=== PATIENT | male | born 1940 | race Caucasian/White ===

== ENCOUNTER → 2016-04-20 | Outpatient (CLI) | payer MEDICARE ==
--- NOTE | 2016-04-20 16:25 | XR ---
EXAMINATION TYPE: XR chest 2V DATE OF EXAM: 04/20/2016 4:21 PM COMPARISON: Chest x-ray September 22, 2010. HISTORY: Cough for one year TECHNIQUE: Frontal and lateral views of the chest are obtained. FINDINGS: Underlying emphysematous change is present. There is no focal air space opacity, pleural ef fusion, or pneumothorax seen. The cardiac silhouette size is within normal limits with slightly ecta tic and atherosclerotic thoracic aorta noted. The osseous structures are demineralized. Metallic an chors from rotator cuff surgery bilateral humeral head is now present. IMPRESSION: Chronic emphysematous change without acute pulmonary process currently.
== END ==
LOC: RADXRMAIN 15:56
PROVIDERS: ATTEND Otolaryngology
DX: J43.9 Emphysema, unspecified (principal)
CPT/HCPCS: 71020

== ENCOUNTER → 2016-06-23 | Outpatient (CLI) | payer MEDICARE ==
--- NOTE | 2016-06-29 23:36 | MR ---
EXAMINATION TYPE: MR pelvis wo/w con DATE OF EXAM: 06/23/2016 12:41 PM COMPARISON: CT abdomen and pelvis July 27, 2013. HISTORY: Newly diagnosed prostate cancer for treatment planning per order. Location and Loiza score not provided. CONTRAST: Standard multiplanar, multisequence MRI departmental protocol utilizing 15 mL intravenous MultiHance gadolinium contrast. Exam is performed of the pelvis under normal pelvis protocol. FINDINGS: Exam is suboptimal as is not performed under a dedicated prostate protocol. Dynamic postcon trast imaging is not performed, in addition best multi phase subtraction imaging could not be perfor med. Also intramuscular glucagon is not given to diminished bowel motion and finally Field of view is much larger than typical for dedicated prostate study. Right-sided seminal vesicle is slightly more prominent lobulated, smaller hypoplastic left seminal ve sicle is noted. Prostate gland measures 5.0 cm transversely by 3.1 cm in AP diameter on axial image 99 series 1201. C raniocaudal length is roughly 3.4 cm on sagittal image 43 series 1601. Prostate gland is thus upper l imits of normal in size. Scattered areas of T1 hyperintensity are likely reflecting methemoglobin or blood product from recent biopsy. There is more prominent heterogeneity of the central zone. Seen bet ter on prior CT 2013 there is suggestion of a subcentimeter peripheral zone nodule left mid lobe ante riorly on axial image 84, this is felt to correspond to correspond to minimally enhancing slightly T2 hyperintense nodule measuring 4 x 5 mm on axial image 98 series 1201. No extracapsular extension is identified. No neurovascular bundle invasion is seen. No suspicious adjacent pelvic adenopathy is see n. Some diverticula are seen in the visualized sigmoid colon. There is no concerning pelvic fluid collec tion. There is partial visualization of small bilateral scrotal fluid collection or hydroceles. There is disc space narrowing at lumbosacral junction. Osseous lesions are identified. Fairly moderate hip joint effusions are seen bilaterally, right greater than left. Enhancement at level of right greater trochanter raises concern for trochanteric bursitis seen best coronal image 67 series 1301. IMPRESSION: Suboptimal study with poor visualization of biopsy-proven malignancy as detailed above. N o suspicious extracapsular extension or concerning pelvic adenopathy clearly identified on this study .
== END | disposition home or self-care (01) ==
LOC: RADMRIMAIN 11:15
PROVIDERS: ATTEND Radiology Radiation Oncology
DX: C61 Malignant neoplasm of prostate (principal)
CPT/HCPCS: 72197; A9577

== ENCOUNTER 2016-08-23 20:25 | Emergency (ER) | payer MEDICARE ==
[2016-08-23 20:31] VITALS: TEMP 98.1
--- NOTE | 2016-08-23 20:51 | ED ---
Male Urogenital HPI - General Chief complaint: Urogenital Stated complaint: Catheter leaking Time Seen by Provider: 08/23/16 20:33 Source: patient, RN notes reviewed Mode of arrival: ambulatory Limitations: no limitations - History of Present Illness Initial comments: this is a 76-year-old male presents emergency Department with chief complaint of Ayala catheter leaking. Patient states he had this placed by his urologist 2 days ago. Patient states he is having difficulty urinating that time secondary to prostate radiation treatment. Patient states that he was doing well until today states that his been leaking around the catheter. He does have the urge to go to the bathroom. Patient denies any fever, chills, diarrhea constipation. He does feel at that he has some distention of his lower abdomen.patient states she's in recent urinary tract infections. Patient states his urine is slightly cloudy though. - Related Data Home Medications Medication Instructions Recorded Confirmed Lisinopril [Zestril] 20 mg PO QAM 07/27/13 08/23/16 Simvastatin [Zocor] 20 mg PO DAILY 07/27/13 08/23/16 Tamsulosin HCl [Flomax] 0.4 mg PO DAILY 07/27/13 08/23/16 Citalopram Hydrobromide [CeleXA] 40 mg PO DAILY 08/23/16 08/23/16 Docusate [Colace] 100 mg PO DAILY 08/23/16 08/23/16 Ibuprofen [Motrin] 600 mg PO TID PRN 08/23/16 08/23/16 Montelukast [Singulair] 10 mg PO DAILY 08/23/16 08/23/16 Omeprazole 40 mg PO DAILY 08/23/16 08/23/16 Unknown Antibiotic 1 tab PO BID 08/23/16 08/23/16 Allergies Allergy/AdvReac Type Severity Reaction Status Date / Time No Known Allergies Allergy Verified 08/23/16 20:43 Review of Systems ROS Statement: Those systems with pertinent positive or pertinent negative responses have been documented in the HPI. ROS Other: All systems not noted in ROS Statement are negative. Past Medical History Past Medical History: Hyperlipidemia, Hypertension, Osteoarthritis (OA), Skin Disorder Additional Past Medical History / Comment(s): prostate, psoriasis History of Any Multi-Drug Resistant Organisms: None Reported Past Surgical History: Orthopedic Surgery, Tonsillectomy Additional Past Surgical History / Comment(s): BILATERAL shoulders. URETHRA REPAIR. Past Anesthesia/Blood Transfusion Reactions: No Reported Reaction Past Psychological History: Anxiety, Depression Smoking Status: Former smoker - Past Family History Mother Family Medical History: No Reported History General Exam Limitations: no limitations General appearance: alert, in no apparent distress Respiratory exam: Present: normal lung sounds bilaterally. Absent: respiratory distress, wheezes, rales, rhonchi, stridor Cardiovascular Exam: Present: regular rate, normal rhythm, normal heart sounds. Absent: systolic murmur, diastolic murmur, rubs, gallop, clicks GI/Abdominal exam: Present: soft, tenderness (mild suprapubic), normal bowel sounds. Absent: distended, guarding, rebound, rigid exam: Present: other (fully catheter in place there is no obviously This time ). Absent: testicular tenderness, urethral discharge Back exam: Absent: CVA tenderness (R), CVA tenderness (L) Neurological exam: Present: alert, oriented X3, CN II-XII intact Course Vital Signs 08/23/16 20:29 Temperature 98.1 F Pulse Rate 71 Respiratory 18 Rate Blood Pressure 219/85 O2 Sat by Pulse 97 Oximetry Medical Decision Making - Medical Decision Making 76-year-old male presented for leaking Ayala catheter. Patient's Ayala catheter was irrigated and one large blood clot was irrigated. Patient's catheter is flowing freely. Patient does feel much improved. Patient's urinalysis does show moderate amount of blood but no evidence of UTI. His urine is cultured. - Lab Data Lab Results 08/23/16 Range/Units 20:44 Urine Color Yellow Urine Appearance Clear (Clear) Urine pH 5.5 (5.0-8.0) Ur Specific [place] 1.016 (1.001-1.035) Urine Protein 1+ H (Negative) Urine Glucose (UA) Negative (Negative) Urine Ketones Negative (Negative) Urine Blood Large H (Negative) Urine Nitrite Negative (Negative) Urine Bilirubin Negative (Negative) Urine Urobilinogen <2.0 (<2.0) mg/dL Ur Leukocyte Esterase Moderate H (Negative) Urine RBC >182 H (0-5) /hpf Urine WBC 7 H (0-5) /hpf Urine Bacteria Occasional H (None) /hpf Urine Mucus Rare H (None) /hpf Disposition Clinical Impression: Complication, blocked Ayala catheter Disposition: HOME SELF-CARE Condition: Stable Instructions: Ayala Catheter Placement and Care (ED) Additional Instructions: Please return to the Emergency Department if symptoms worsen or any other concerns. Referrals: Daquan Collier DO [Primary Care Provider] - 1-2 days Time of Disposition: 21:05
[2016-08-23 20:55] LABS: Appearance,Urine Clear (Clear); Bacteria,Urine Occasional /hpf; Bilirubin,Urine Negative (Negative); Glucose,Urine (UA) Negative (Negative); Ketones,Urine Negative (Negative); Leukocyte Esterase,Urine Moderate (Negative); Mucus,Urine Rare /hpf; Nitrite,Urine Negative (Negative); PH, Urine 5.5 (5.0-8.0); Particle Count 3386; Protein,Urine 1+ (Negative); RBC,Urine >182 /hpf (0-5); Specific Gravity,Urine 1.016 (1.001-1.035); UA Billing (MACRO vs. MICRO) MICRO; Urobilinogen,Urine <2.0 mg/dL (<2.0); WBC,Urine 7 /hpf (0-5)
[2016-08-23 21:15] VITALS: BP 169/77; PULSE 75; RESP 16
== END 2016-08-23 21:13 | disposition home or self-care (01) ==
LOC: EC 20:25
DX: T83.031A Leakage of indwelling urethral catheter, initial encounter (principal); E78.5 Hyperlipidemia, unspecified; I10 Essential (primary) hypertension; F32.9 Major depressive disorder, single episode, unspecified; Z79.899 Other long term (current) drug therapy; Z87.891 Personal history of nicotine dependence
CPT/HCPCS: 81001; 87086; 99283

== ENCOUNTER 2016-11-11 06:22 | Day surgery (SDC) | payer MEDICARE ==
[2016-11-09 09:42] VITALS: BMI 22.0
[~2016-11-11 06:22] MED LIST: ALPRAZolam 0.25 MG TAB PO PRN; ALPRAZolam 0.5 MG TAB PO PRN; ASPIRIN 325 MG TAB PO STA; ATORVASTATIN 80 MG TAB PO STA; NITROGLYCERIN SL TABS 0.4 MG TAB SUBLINGUAL PRN; SODIUM CHLORIDE 0.9% 1,000 ML in EMPTY BAG 1 BAG IV ONE
[2016-11-11] MEDS ORDERED: fentaNYL (PF) 50 MCG/ML 2 ML AMP ONE (07:33)
[2016-11-11] MEDS ORDERED: MIDAZOLAM 2 MG/2 ML VIAL ONE ×2 (07:33→07:34)
[2016-11-11] MEDS ORDERED: BENZOCAINE SPRAY 1 SPRAY CAN MUCOUS MEM ONE (07:38)
[2016-11-11] MEDS ORDERED: MIDAZOLAM 2 MG/2 ML VIAL IV ONE (07:42)
[2016-11-11] MEDS ORDERED: fentaNYL (PF) 50 MCG/ML 2 ML AMP IV ONE (07:42)
--- NOTE | 2016-11-11 08:00 | P.TEE ---
Indications for Procedure(s): Assessment of aortic stenosis Date of Procedure: 11/11/16 Preoperative Diagnosis: Aortic stenosis Postoperative Diagnosis: Severe aortic stenosis by Doppler criteria Description of Procedure(s): INDICATION: This 76-year-old gentleman with known aortic stenosis was found to have increasing gradient across the aortic valve with a peak of 80 and mean of about 40. Patient is advised to have a JEZ to further assess her aortic stenosis. CONSENT: Informed consent was obtained from patient and PROCEDURE: . Patient was brought to the lab in a fasting state. He was given conscious sedation with 2 mg of Versed and 25 g of fentanyl. A lubricated Omni probe was introduced into the oropharynx and was advanced into the esophagus. Multiple views were obtained both from stomach and esophagus. Patient tolerated the procedure well. Color and pulse wave Doppler was performed along with saline contrast bubble injection. FINDINGS: The aortic valve is heavily calcified. It appears to be trileaflet. By planimetry valve area of 1.3 cm was obtained. However, a peak gradient of about 75 with mean of 39 was obtained consistent with severe aortic stenosis. No aortic regurgitation noted. Aortic root diameter is measures 2.7. The mitral valve did not reveal any significant regurgitation. Status post mitral regurgitation. The left atrial appendage is free of any clot. Interatrial septum appeared to be intact without any shunt. Saline contrast bubble injection did not reveal any crossing of the bubbles across the interatrial septum. Left ventricular function appeared to be normal. Aorta showed minimal plaque IMPRESSION: #1. Severe aortic stenosis by Doppler criteria. By planimetry valve area is 1.3 sized to moderate aortic stenosis. #2. No PFO #3. No clot in the left atrial appendage. #4. Left ventricular function is preserved. PLAN: Proceed with cardiac catheterization. Possible referral for aortic valve replacement.
[2016-11-11] MEDS ORDERED: LIDOCAINE 2% INJ 20 MG/ML SQ ONE (08:28)
[2016-11-11 08:56] LABS: Site PA
[2016-11-11 08:59] LABS: Site RA
[2016-11-11 09:02] LABS: Site FA
[2016-11-11] MEDS ORDERED: IOHEXOL 350 MG/ML 125ML BOTTLE INJ ONE (09:20)
[2016-11-11] MEDS ORDERED: RX INFO: IV CONTRAST WAS GIVEN 1 EACH MISC MISCELLANE PRN (09:25)
[2016-11-11] MEDS ORDERED: SODIUM CHLORIDE 0.9% 1,000 ML IV SCH (09:30)
--- NOTE | 2016-11-11 09:53 | P.PCN ---
Date of Procedure: 11/11/16 Preoperative Diagnosis: Critical aortic stenosis Postoperative Diagnosis: Moderate to severe aortic stenosis with a valve area of about 1.1-1.2 Procedure(s) Performed: Right and left heart catheterization Description of Procedure: HISTORY: This is a 76-year-old gentleman with history of mild aortic stenosis, hypertension, hypercholesterolemia who had echocardiogram recently and was found a peak gradient of 80 with a mean of 60 consistent with severe aortic stenosis. Patient is advised to have a right and left heart catheterization for further assessment. Patient and family were explained the risks and benefits of the procedure. CONSENT:I have discussed the risks, benefits and alternative therapies for the above-mentioned procedure and for both sedation/analgesia as well as necessary blood product administration, if indicated, as they pertain to this patient. The patient has indicated understanding and acceptance of the risks and procedures discussed. PROCEDURE: Patient was brought to the lab in a fasting state. Patient was given conscious IV sedation for JEZ examination. No additional sedation was given during the procedure. RIGHT HEART CATHETERIZATION: The right groin is infiltrated with lidocaine and right femoral vein was entered using Seldinger technique. A 7-Tunisian sheath was left in place. Right heart catheterization was performed using 6-Tunisian [place]-Shannan catheter. Patient tolerated the procedure well. LEFT HEART CATHETERIZATION:Right femoral artery was entered using Seldinger technique. A 6-Tunisian catheter was left in place and selective coronary arteriography was performed. Patient tolerated the procedure well. . No immediate complications were noted and patient was transferred to [facility] in a stable condition. Manual compression was applied for hemostasis. Femoral angiogram was performed and entry site was not felt to be ideal for Angio-Seal. Conscious Sedation: Versed : 2 mg Fentanyl 25 g Duration 55 minutes HEMODYNAMICS: . RIGHT HEART CATHETERIZATION: Right Atrium: 7/5/4 . Right ventricle: 25/3/4 , pulmonary artery pressure: 22/10/14 . Pulmonary wedge pressure: 14/16/ 10 Cardiac output: Thermodilution method is 5.3, Alex method is 4.73. Oxygen saturations: Right atrium is 6-8.8. Pulmonary artery 67.2. Femoral arteries 97.7 LEFT HEART CATHETERIZATION Left ventricle pressure is 175/6/19. He did aortic pressure: 149/57/93. The gradient across the aortic valve peak gradient is 26- 30. The mean gradient is 24. The valve area is 1.1-1.2. SELECTIVE CORONARY ARTERIOGRAPHY: LEFT MAIN: The left main is a relatively short and free of any significant occlusive disease. THE LEFT ANTERIOR DESCENDING CORONARY ARTERY: This is a moderate caliber vessel giving rise to good-sized diagonal branch. The diagonal branches. The ostial lesion of about 50-60%. The mid LAD has an area. 60-70% stenosis. The vessel becomes small of to the mid lesion THE LEFT CIRCUMFLEX AND IS CORONARY ARTERY: . This is a good caliber vessel, including giving rise good-sized OM branch and the circumflex and is coronary artery and branches are free of occlusive disease THE RIGHT CORONARY ARTERY: . This is a fair caliber vessel giving rise good-sized PDA and small PLV. The right coronary artery and branches are free of occlusive disease LEFT VENTRICULOGRAPHY: . Not performed FINAL IMPRESSION: #1 moderate to severe aortic stenosis. #2. Moderate stenosis involving the mid LAD and also ostium of the first diagonal. #3. Normal pulmonary hemodynamics PLAN: . Continuation of medical therapy with risk factor modification. Close follow-up of wide stenosis PROGNOSIS: Fair
[2016-11-11 10:29] VITALS: TEMP 98.2
[2016-11-11 16:00] VITALS: RESP 18
[2016-11-11 16:01] VITALS: BP 166/73; PULSE 52
== END 2016-11-11 17:30 | disposition home or self-care (01) ==
LOC: CATHCVL 06:22
PROVIDERS: ATTEND Internal Medicine Cardiovascular Disease
DX: I35.0 Nonrheumatic aortic (valve) stenosis (principal); I10 Essential (primary) hypertension; E78.00 Pure hypercholesterolemia, unspecified; Z79.82 Long term (current) use of aspirin; Z79.899 Other long term (current) drug therapy; Z85.46 Personal history of malignant neoplasm of prostate; Z87.891 Personal history of nicotine dependence; N40.1 Benign prostatic hyperplasia with lower urinary tract symptoms; N13.8 Other obstructive and reflux uropathy
CPT/HCPCS: 93312; 93320; 93325; 93460; 85018; 82810; 99152; 99153 ×2; C1769 ×2; C1894 ×2; J2001; J2250; J3010; Q9967

== ENCOUNTER → 2017-11-15 | Outpatient (CLI) | payer MEDICARE ==
--- NOTE | 2017-11-16 07:58 | US ---
EXAMINATION TYPE: US thyroid st tissue head/neck DATE OF EXAM: 11/15/2017 COMPARISON: 10/30/2015 CLINICAL HISTORY: E04.2 MULITNODULAR GOITER. Goiter, pt has no complaints at this time GLAND SIZE: Right Lobe: 4.9 x 1.7 x 2.0 cm Overall Parenchyma: homogenous Left Lobe: 4.9 x 1.9 x 1.3 cm Overall Parenchyma: homogeneous Isthmus Thickness: 0.4 cm NODULES RIGHT: # of nodules measured on right: 1 1. 0.6 X 0.5 x 0.7 cm hypoechoic solid nodule at the mid pole with well-defined margins;This nodule is wider than tall and shows intranodular vascularity. Prior size: 0.7 cm LEFT: # of nodules measured on left: 1 1. 0.6 X 0.5 x 0.4 cm isoechoic solid nodule at the mid pole with well-defined margins; This nodule is wider than tall and shows intranodular vascularity. Prior size: 0.6 cm Bilateral neck scanned, no evidence of lymphadenopathy. Stable sub-centimeter nodules bilaterally. IMPRESSION: Bilateral subcentimeter thyroid nodules appear stable. Thyroid gland is slightly enlarged. Correlate clinically.
== END ==
LOC: RADUSWWP 15:54
PROVIDERS: ATTEND Family Medicine
DX: E04.2 Nontoxic multinodular goiter (principal)
CPT/HCPCS: 76536

== ENCOUNTER → 2018-03-02 | Day surgery (SDC) | payer MEDICARE ==
[~2018-03-02] MED LIST changes: +IOPAMIDOL-370 125ML BTL INJ ONE; +LIDOCAINE 1% INJ 10MG/ML (20 ML MDV) ONE; +LIDOCAINE 1% INJ 10MG/ML (20 ML MDV) SQ ONE; +MIDAZOLAM 2 MG/2 ML VIAL IVP ONE; +SODIUM CHLORIDE 0.9% 1,000 ML IV SCH; +fentaNYL (PF) 50 MCG/ML 2 ML AMP IVP ONE; +fentaNYL (PF) 50 MCG/ML 2 ML AMP ONE
[2018-03-02 08:20] VITALS: TEMP 97.9
[2018-03-02 08:32] LABS: Basophils % (A) 1 %; Eosinophils # (A) 0.2 k/uL (0-0.7); Eosinophils % (A) 4 %; HCT 42.1 % (39.0-53.0); HGB 14.1 gm/dL (13.0-17.5); Lymphocytes % (A) 17 %; MCH 29.4 pg (25.0-35.0); MCHC 33.5 g/dL (31.0-37.0); MCV 87.7 fL (80.0-100.0); Mean Platelet Volume 6.8; Monocytes # (A) 0.6 k/uL (0-1.0); Monocytes % (A) 10 %; Neutrophils # (A) 3.9 k/uL (1.3-7.7); Neutrophils % (A) 67 %; Platelet Count 179 k/uL (150-450); RDW 13.9 % (11.5-15.5); WBC 5.9 k/uL (3.8-10.6)
[2018-03-02 08:40] LABS: Calcium 9.5 mg/dL (8.4-10.2); Potassium 4.3 mmol/L (3.5-5.1)
[2018-03-02 09:17] LABS: O2 Sat Blood Gas 68.6 %
[2018-03-02 09:19] LABS: O2 Sat Blood Gas 59.2 %
[2018-03-02 09:23] LABS: O2 Sat Blood Gas 93.7 %
--- NOTE | 2018-03-02 09:57 | P.CARDCATH ---
Date of Procedure: 03/02/18 Preoperative Diagnosis: Aortic stenosis, severe and symptoms of dizziness Description of Procedure: HISTORY: This is a 77-year-old gentleman with history of coronary artery disease and also aortic stenosis. Recently patient had a JEZ examination which showed some progression of aortic stenosis with a peak gradient of about 50-60. However by planimetry Valve area of 1.1. This was done last year. Patient came this time to the office with complaints of episodes of dizziness. Because of his symptoms and known moderate to severe aortic stenosis. Patient is advised to have cardiac catheterization. Patient also had a coronary artery disease with lesions the diagonal branch and the LAD and the previous cardiac catheterization. CONSENT:I have discussed the risks, benefits and alternative therapies for the above-mentioned procedure and for both sedation/analgesia as well as necessary blood product administration, if indicated, as they pertain to this patient. The patient has indicated understanding and acceptance of the risks and procedures discussed. PROCEDURE: Patient was brought to the lab in a fasting state. Patient was given some IV sedation. The right groin is infiltrated with lidocaine and right femoral artery was entered using Seldinger technique. A 6-Malay catheter was left in place and selective coronary arteriography was performed. Patient tolerated the procedure well. Femoral angiogram was performed and Angio -Seal was applied for hemostasis. No immediate complications were noted and patient was transferred to [facility] in a stable condition : Right heart catheterization: This is performed from the right groin. Right femoral vein was entered using Seldinger technique and a 7-Malay sheath was left in place. Right heart catheterization was performed using a [place]-Shannan catheter. Patient tolerated the procedure well Conscious Sedation: Versed 0.5 mg Fentanyl 25 g Duration 32 minutes HEMODYNAMICS:. Right heart catheterization showed a right atrial pressure of about 3-4, right ventricle pressure of about 26/4, pulmonary artery pressure of about 25/11 and read presented to 9 to 11. The cardiac output by thermodilution method was about 4.6 L and by Alex method 5.1. The peak gradient across the aortic valve was 46 with a mean of 34. The calculated valve area is 0.8 2.89. The aortic pressure is about 140/70. Left ankle end- diastolic pressure is about 5-6. SELECTIVE CORONARY ARTERIOGRAPHY: LEFT MAIN: This is a normal length and free of occlusive disease THE LEFT ANTERIOR DESCENDING CORONARY ARTERY:. This is a fair caliber vessel giving rise to good-sized diagonal branch. The diagonal branch has about 70-80% ostial lesion. There is also about 60-70% lesion involving the mid LAD. Beyond that lesion the vessel appears to be small in caliber. THE LEFT CIRCUMFLEX AND IS CORONARY ARTERY: Fair caliber vessel giving rise to good-sized OM branch. The circumflex has mild intimal disease without any Sigmund focal lesion THE RIGHT CORONARY ARTERY:. This is a good caliber vessel giving rise to PDA and small PLV. The right coronary artery is mild intimal disease without any significant focal lesions LEFT VENTRICULOGRAPHY: Not performed FINAL IMPRESSION:. #1. Critical aortic stenosis. #2. Coronary artery disease with critical lesion in the diagonal and intermediate disease in the mid LAD. #3. Normal pulmonary hemodynamics. #4. Preserved LV function by echo PLAN:. Patient is advised to have a aortic wall replacement with bypass graft to the diagonal and also possibly to the distal LAD PROGNOSIS: Fair
[2018-03-02 11:02] VITALS: RESP 18
[2018-03-02 11:46] LABS: INR 0.9 (<1.2); Partial Thromboplastin Time 24.4 sec (22.0-30.0); Prothrombin Time 10.2 sec (9.0-12.0)
[2018-03-02 11:48] LABS: ALT 28 U/L (21-72); AST 23 U/L (17-59); Alkaline Phosphatase 70 U/L (38-126); Anion Gap 4 mmol/L; Blood Urea Nitrogen 20 mg/dL (9-20); Calcium 9.2 mg/dL (8.4-10.2); Carbon Dioxide 28 mmol/L (22-30); Chloride 110 mmol/L (98-107); Cholesterol 156 mg/dL (<200); Glucose 101 mg/dL (74-99); HDL Cholesterol 47 mg/dL (40-60); LDL Cholesterol,Calculated 84 mg/dL (0-99); Potassium 4.8 mmol/L (3.5-5.1); Sodium 142 mmol/L (137-145); Total Bilirubin 0.8 mg/dL (0.2-1.3); Total Protein 6.4 g/dL (6.3-8.2); Triglycerides 125 mg/dL (<150)
--- NOTE | 2018-03-02 12:11 | P.GSCN ---
History of Present Illness Consult date: 03/02/18 Reason for Consult: Critical aortic stenosis, coronary artery disease with critical lesion in the diagonal and intermediate disease in the mid left anterior descending coronary artery. Requesting physician: Paula Jara History of present illness: This is a 77-year-old gentleman who is followed by Dr. Daquan Collier of [facility] on an outpatient basis. The patient has a past medical history significant for aortic stenosis, hypertension, hyperlipidemia, gastroesophageal reflux disease, psoriasis, osteoarthritis, depression, benign prostatic hypertrophy and history of prostate cancer with one treatment of radiation. In the past 6 months the patient reports that he has been having episodes of weakness associated with lightheadedness which is been progressively getting more frequent. He reports that he feels like he is going to pass out at least once a week and that the episodes only come on during activity. He denies any complaints of shortness of breath, chest pain or pressure, nausea, vomiting, diaphoresis or syncopal events. Dr. Jara from [facility] has been following the patient on an outpatient basis for his episodes of lightheadedness. On 2017 the patient underwent a transesophageal echocardiogram which showed moderate to severe aortic valve stenosis with a mean gradient across the aortic valve 25-30 mmHg and a peak gradient of 50-60 mmHg, and a aortic valve area calculated to be 1.2 cm, moderate mitral valve regurgitation and a left ventricular function to be preserved. Subsequently due to the patient's symptoms and no one moderate to severe aortic valve stenosis he was advised to undergo a cardiac catheterization. Today after obtaining consent hev was taken to the cardiac catheterization lab where Dr. Jara performed a selective right and left coronary arteriography which demonstrated a 70-80% stenosis to his diagonal coronary artery and a 60-70% stenosis involving his mid left anterior descending coronary artery, it also demonstrated critical aortic stenosis with a peak gradient across the aortic valve of 46 mmHg and a mean gradient of 34 mmHg with an aortic valve area Related to be 0.8 cm. Due to the patient's symptoms, transesophageal echocardiogram and a cardiac catheterization results a consult was placed to Dr. Ananda Estrada for recommendations on aortic valve replacement and myocardial revascularization surgery. Review of Systems A 14 point review of systems was completed and was negative except as mentioned in the HPI. Past Medical History Past Medical History: GERD/Reflux, Hyperlipidemia, Hypertension, Osteoarthritis (OA), Prostate Disorder, Skin Disorder Additional Past Medical History / Comment(s): Episodes of dizziness and presyncope. Prostate CA dx 2014 approx-received high definition radiation 1 treatment. Psoriasis History of Any Multi-Drug Resistant Organisms: None Reported Past Surgical History: Orthopedic Surgery, Tonsillectomy Additional Past Surgical History / Comment(s): 12/27/17 JEZ. BILATERAL shoulders. URETHRA REPAIR. Past Anesthesia/Blood Transfusion Reactions: No Reported Reaction Past Psychological History: Anxiety, Depression Smoking Status: Former smoker (Quit over 35 years ago.) Past Alcohol Use History: Occasional Additional Past Alcohol Use History / Comment(s): quit smoking , smoked socially <1 pp week,started smoking at age 16 Past Drug Use History: None Reported - Past Family History Mother Family Medical History: No Reported History Medications and Allergies Home Medications Medication Instructions Recorded Confirmed Type Lisinopril [Zestril] 20 mg PO QA 07/27/13 03/02/18 History Simvastatin [Zocor] 20 mg PO DAILY 07/27/13 03/02/18 History Tamsulosin HCl [Flomax] 0.4 mg PO 07/27/13 03/02/18 History Citalopram Hydrobromide [CeleXA] 40 mg PO DAILY 08/23/16 03/02/18 History Docusate [Colace] 100 mg PO HS 08/23/16 03/02/18 History Omeprazole 40 mg PO HS 08/23/16 03/02/18 History Aspirin [Adult Low Dose Aspirin EC] 162 mg PO HS 11/09/16 03/02/18 History Metoprolol Tartrate 25 mg PO DAILY #30 tab 11/11/16 03/02/18 Rx Allergies Allergy/AdvReac Type Severity Reaction Status Date / Time No Known Allergies Allergy Verified 03/01/18 09:49 Surgical - Exam Vital Signs Temp Pulse Resp BP Pulse Ox 97.9 F 64 18 194/81 99 03/02/18 08:05 03/02/18 08:05 03/02/18 08:05 03/02/18 08:05 03/02/18 08:05 - General well developed, well nourished, no distress, no pain - Eyes PERRL, normal ocular movement - ENT normal pinna, normal nares, normal mucosa, no hearing loss, no congestion - Neck No lymphadenopathy, neck is supple. no masses, no bruits, trachea midline, no venous distension - Respiratory Lung sounds are essentially clear throughout. Respirations are symmetrical and nonlabored. No wheezing or crackles present. - Cardiovascular Regular rhythm and rate. S1 and S2 present, positive systolic murmur 3/6. No edema present. Bedside telemetry showing normal sinus rhythm heart rate 61. - Abdomen Abdomen is soft, nontender and nondistended. Active bowel sounds all 4 abdominal quadrants. No organomegaly. No guarding or rigidity. - Genitourinary Deferred - Rectum Deferred - Integumentary no rash, no growths, no abnormal pigmentation - Neurologic normal coordination, normal sensation - Musculoskeletal normal gait, normal posture - Psychiatric oriented to time, oriented to person, oriented to place, speech is normal, memory intact Results - Labs 03/02/18 08:07 03/02/18 11:16 Abnormal Lab Results - Last 24 Hours (Table) 03/02/18 Range/Units 08:07 Chloride 109 H (98-107) mmol/L BUN 22 H (9-20) mg/dL Glucose 102 H (74-99) mg/dL Diabetes panel 03/02/18 Range/Units 08:07 Sodium 144 (137-145) mmol/L Potassium 4.3 (3.5-5.1) mmol/L Chloride 109 H (98-107) mmol/L Carbon Dioxide 27 (22-30) mmol/L BUN 22 H (9-20) mg/dL Creatinine 0.94 (0.66-1.25) mg/dL Glucose 102 H (74-99) mg/dL Calcium 9.5 (8.4-10.2) mg/dL Calcium panel 03/02/18 Range/Units 08:07 Calcium 9.5 (8.4-10.2) mg/dL Pituitary panel 03/02/18 Range/Units 08:07 Sodium 144 (137-145) mmol/L Potassium 4.3 (3.5-5.1) mmol/L Chloride 109 H (98-107) mmol/L Carbon Dioxide 27 (22-30) mmol/L BUN 22 H (9-20) mg/dL Creatinine 0.94 (0.66-1.25) mg/dL Glucose 102 H (74-99) mg/dL Calcium 9.5 (8.4-10.2) mg/dL Adrenal panel 03/02/18 Range/Units 08:07 Sodium 144 (137-145) mmol/L Potassium 4.3 (3.5-5.1) mmol/L Chloride 109 H (98-107) mmol/L Carbon Dioxide 27 (22-30) mmol/L BUN 22 H (9-20) mg/dL Creatinine 0.94 (0.66-1.25) mg/dL Glucose 102 H (74-99) mg/dL Calcium 9.5 (8.4-10.2) mg/dL - Imaging Comments: Cardiac catheterization and transesophageal echocardiogram results reviewed by Dr. Ananda Estrada. Assessment and Plan (1) Coronary artery disease Current Visit: Yes Status: Acute Code(s): I25.10 - ATHSCL HEART DISEASE OF [place] CORONARY ARTERY W/O ANG PCTRS SNOMED Code(s): 30217086 (2) Aortic valve stenosis Current Visit: Yes Status: Acute Code(s): I35.0 - NONRHEUMATIC AORTIC (VALVE ) STENOSIS SNOMED Code(s): 46690267 (3) Hypertension Current Visit: Yes Status: Acute Code(s): I10 - ESSENTIAL (PRIMARY) HYPERTENSION SNOMED Code(s): 57865304 (4) Hyperlipidemia Current Visit: Yes Status: Acute Code(s): E78.5 - HYPERLIPIDEMIA, UNSPECIFIED SNOMED Code(s): 00490965 (5) Psoriasis Current Visit: Yes Status: Acute Code(s): L40.9 - PSORIASIS, UNSPECIFIED SNOMED Code(s): 6074406 (6) Osteoarthritis Current Visit: Yes Status: Acute Code(s): M19.90 - UNSPECIFIED OSTEOARTHRITIS, UNSPECIFIED SITE SNOMED Code(s): 962575017 (7) BPH (benign prostatic hyperplasia) Current Visit: Yes Status: Acute Code(s): N40.0 - BENIGN PROSTATIC HYPERPLASIA WITHOUT LOWER URINRY TRACT SYMP SNOMED Code(s): 813500429 (8) History of prostate cancer Current Visit: Yes Status: Acute Code(s): Z85.46 - PERSONAL HISTORY OF MALIGNANT NEOPLASM OF PROSTATE SNOMED Code(s): 236037008 (9) GERD (gastroesophageal reflux disease) Current Visit: Yes Status: Acute Code(s): K21.9 - GASTRO-ESOPHAGEAL REFLUX DISEASE WITHOUT ESOPHAGITIS SNOMED Code(s): 167724508 (10) Depression Current Visit: Yes Status: Acute Code(s): F32.9 - MAJOR DEPRESSIVE DISORDER , SINGLE EPISODE, UNSPECIFIED SNOMED Code(s): 18761849 Plan: The patient was seen and examined. His chart and diagnostics were reviewed. The patient was seen and examined by Dr. Ananda Estrada from cardiothoracic surgery. Dr. Estrada discussed the transesophageal echocardiogram and cardiac catheterization results with the patient and his daughter. Preoperative teaching has been initiated and preoperative workup has been initiated. The patient will be scheduled on 03/10/2017 to follow-up with Dr. Estrada in the office to to discuss aortic valve replacement and myocardial revascularization surgery. Continue to optimize medical management, continue aspirin, statin and beta yaneth. Thank you Dr. Jara for this consult and we will look fourth working with you in the care of your patient. Time with Patient: Greater than 30
--- NOTE | 2018-03-02 13:17 | XR ---
EXAMINATION TYPE: XR chest 2V DATE OF EXAM: 03/02/2018 COMPARISON: Chest x-ray April 20, 2016. HISTORY: Preop cardiac surgery. TECHNIQUE: Frontal and lateral views of the chest are obtained. FINDINGS: There is some chronic parenchymal change without suspicious new focal air space opacity, p leural effusion, or pneumothorax seen. The cardiac silhouette size is upper limits of normal with at herosclerotic and slightly ectatic thoracic aorta. Metallic anchors from rotator cuff surgery bilater al humeral heads are noted. Multilevel spurring in thoracic spine is redemonstrated. IMPRESSION: Chronic changes without acute pulmonary process. No significant change from prior chest x-ray.
[2018-03-02 13:23] LABS: Appearance,Urine Clear (Clear); Bilirubin,Urine Negative (Negative); Blood,Urine Negative (Negative); Color,Urine Light Yellow; Glucose,Urine (UA) Negative (Negative); Ketones,Urine Negative (Negative); Leukocyte Esterase,Urine Negative (Negative); Nitrite,Urine Negative (Negative); Protein,Urine Negative (Negative); Specific Gravity,Urine 1.021 (1.001-1.035); Urobilinogen,Urine <2.0 mg/dL (<2.0)
[2018-03-02 13:29] VITALS: BP 175/80; PULSE 60
--- NOTE | 2018-03-02 14:32 | US ---
EXAMINATION TYPE: US carotid duplex BILAT DATE OF EXAM: 03/02/2018 COMPARISON: Carotid ultrasound December 25, 2015 CLINICAL HISTORY: PreOp Cardiac Surgery. Pre-Op EXAM MEASUREMENTS: RIGHT: Peak Systolic Velocity (PSV) cm/sec ----- Right CCA: 66.2 ----- Right ICA: 119.4 ----- Right ECA: 102.1 ICA/CCA ratio: 1.8 RIGHT: End Diastole cm/sec ----- Right CCA: 14.7 ----- Right ICA: 38.6 ----- Right ECA: 0.0 LEFT: Peak Systolic Velocity (PSV) cm/sec ----- Left CCA: 77.9 ----- Left ICA: 115.1 ----- Left ECA: 84.5 ICA/CCA ratio: 1.5 LEFT: End Diastole cm/sec ----- Left CCA: 14.2 ----- Left ICA: 30.9 ----- Left ECA: 0.0 VERTEBRALS (direction of flow): Right Vertebral: Antegrade Left Vertebral: Antegrade Rhythm: Normal No significant stenosis seen Grayscale images show mild eccentric plaque at right carotid bulb and mild eccentric plaque at left c arotid bulb. Velocity measurements and ratios remain within normal limits in visualized portion of lav[place] th internal carotid arteries. IMPRESSION: Mild atherosclerotic change bilaterally without hemodynamically significant stenosis see n in either internal carotid artery. Criteria for Assigning % of Stenosis / Diameter reduction (Estimation based on the indirect measurements of the internal carotid artery velocities (ICA PSV). 1. Normal (no stenosis)=ICA PSV < 125 cm/s: ratio < 2.0: ICA EDV<40 cm/s. 2. Less than 50% stenosis=ICA PSV < 125 cm/s: ratio < 2.0: ICA EDV<40 cm/s. 3. 50 to 69% stenosis=ICA PSV of 125 to 230 cm/s: ration 2.0 ? 4.0: ICA EDV 40-100 cm/s. 4. Greater than 70% stenosis to near occlusion= ICA PSV > 230 cm/s: ratio > 4.0: ICA EDV > 100 cm/s. 5. Near occlusion= ICA PSV velocities may be low or undetectable: variable ratio and ICA EDV. 6. Total occlusion=unable to detect flow.
[2018-03-02 18:00] LABS: Hepatitis A Antibody IgM Non-Reactive (Non-Reactive); Hepatitis B Core IgM Non-Reactive (Non-Reactive)
--- NOTE | 2018-03-09 09:01 | P.VSCSTY ---
Greater Saphenous Vein Mapping This is bilateral lower extremity greater saphenous vein mapping. Date of service 03/02/2018 Vein quality and ultrasound appearance no obvious intraluminal thrombus or wall changes are seen. Vein size groin right 4.2 x 4.3 groin left 5.2 x 5.9 High thigh right 2.0 x 1.5 high thigh left 4.1 x 4.1 Mid thigh right 2.8 x 2.3 mid thigh left 3.3 x 3.4 Above-knee right 2.3 x 2.3 above- knee left 3.4 x 3.7 Below knee right 1.7 x 2.0 below-knee left 1.7 x 1.7 Mid calf right 1.7 x 1.6 mid calf left 1.7 x 1.8 Ankle right 2.2 x 2.5 ankle left 2.2 x 2.0 Impression the area of the left knee and above appears usable. There may be usable vein in the right thigh. Both lower legs look too small to be used for conduit..
== END | disposition home or self-care (01) ==
LOC: CATHCVL 07:50
PROVIDERS: ATTEND Internal Medicine Cardiovascular Disease
DX: I35.0 Nonrheumatic aortic (valve) stenosis (principal); I25.10 Atherosclerotic heart disease of native coronary artery without angina pectoris; I10 Essential (primary) hypertension; E78.00 Pure hypercholesterolemia, unspecified; Z85.46 Personal history of malignant neoplasm of prostate; Z92.3 Personal history of irradiation; Z87.891 Personal history of nicotine dependence; N40.0 Benign prostatic hyperplasia without lower urinary tract symptoms; K21.9 Gastro-esophageal reflux disease without esophagitis; E78.5 Hyperlipidemia, unspecified; L40.9 Psoriasis, unspecified; M19.90 Unspecified osteoarthritis, unspecified site; F32.9 Major depressive disorder, single episode, unspecified; F41.9 Anxiety disorder, unspecified; Z88.8 Allergy status to other drugs, medicaments and biological substances; Z79.82 Long term (current) use of aspirin; Z79.899 Other long term (current) drug therapy
CPT/HCPCS: 94150; 93456; 84439; 80061; 80053; 80074; 85018; 84443; 82810; 83735; 85025; 85610; 85730; 81003; 87070; 87086; 83036; 71046; 93970; 93880; C1760; C1769 ×2; C1894 ×2; J2250; J2001; J3010; Q9967; 80048

== ENCOUNTER 2018-06-07 16:06 | Emergency (ER) | payer MEDICARE ==
[2018-06-07 16:16] VITALS: PULSE 73; RESP 18; TEMP 98.4
[2018-06-07] MEDS ORDERED: DIPH,PERTUS(ACELL)TETVAC-LF 0.5 ML VIAL IM ONE (16:26)
--- NOTE | 2018-06-07 16:57 | ED ---
General Adult HPI - General Chief complaint: Extremity Injury, Upper Stated complaint: RT ARM INJURY Time Seen by Provider: 06/07/18 16:21 Source: patient, RN notes reviewed Mode of arrival: ambulatory Limitations: no limitations - History of Present Illness Initial comments: Patient's an 78-year-old male presented to the emergency room today with a chief complaint of a fall occurred 2 hours ago. He does admit that he was outside his house he was trying to cross a plastic can when he slipped and fell on the steps with his right arm. He states he heard something crunch. Patient does not pain to the right forearm. States was no head injury or loss consciousness. Patient admits that pain is worse with certain movements. Does admit to a skin tear to the right forearm. Patient states unsure of his tetanus status. He denies any bites or symptoms. Patient denies any recent fever, chills, shortness of breath, chest pain, back pain, abdominal pain, nausea or vomiting, numbness or tingling, dysuria or hematuria, constipation or diarrhea, headaches or visual changes, or any other complaints. - Related Data Home Medications Medication Instructions Recorded Confirmed Lisinopril [Zestril] 20 mg PO QAM 07/27/13 06/07/18 Simvastatin [Zocor] 20 mg PO DAILY 07/27/13 06/07/18 Tamsulosin HCl [Flomax] 0.4 mg PO HS 07/27/13 06/07/18 Docusate [Colace] 200 mg PO HS 08/23/16 06/07/18 Omeprazole 40 mg PO DAILY 08/23/16 06/07/18 Aspirin [Adult Low Dose Aspirin EC] 162 mg PO HS 11/09/16 06/07/18 Previous Rx's Medication Instructions Recorded Metoprolol Tartrate 25 mg PO DAILY #30 tab 11/11/16 Hydrocodone/Acetaminophen [[place] 1 each PO Q6HR PRN #12 tab 06/07/18 5-325] Allergies Allergy/AdvReac Type Severity Reaction Status Date / Time No Known Allergies Allergy Verified 06/07/18 16:41 Review of Systems ROS Statement: Those systems with pertinent positive or pertinent negative responses have been documented in the HPI. ROS Other: All systems not noted in ROS Statement are negative. Past Medical History Past Medical History: GERD/Reflux, Hyperlipidemia, Hypertension, Osteoarthritis (OA), Prostate Disorder, Skin Disorder Additional Past Medical History / Comment(s): Episodes of dizziness and presyncope. Prostate CA dx 2014 approx-received high definition radiation 1 treatment. Psoriasis History of Any Multi-Drug Resistant Organisms: None Reported Past Surgical History: Orthopedic Surgery, Tonsillectomy Additional Past Surgical History / Comment(s): 12/27/17 JEZ. BILATERAL shoulders. URETHRA REPAIR. Past Anesthesia/Blood Transfusion Reactions: No Reported Reaction Past Psychological History: Anxiety, Depression Smoking Status: Former smoker Past Alcohol Use History: Occasional Past Drug Use History: None Reported - Past Family History Mother Family Medical History: No Reported History General Exam - General Exam Comments Initial Comments: General: The patient is awake and alert, in no distress, and does not appear a cutely ill. Eye: There is normal conjunctiva bilaterally. No signs of icterus. Ears, nose, mouth and throat: There are moist mucous membranes and no oral lesions. Neck: The neck is supple, there is no tenderness or JVD. Musculoskeletal: Patient does have decreased range of motion with both supination and pronation. Patient does have tenderness midshaft of the right forearm. Mild tenderness to the distal radius. Radial pulses 2+ per sensations are intact. Cap refill is 2 seconds. Neurological: A&O x 3. CN II-XII intact, There are no obvious motor or sensory deficits. Coordination appears grossly intact. Speech is normal. Skin: There gilbert superficial skin tear to the posterior aspect of the right forearm. No active bleeding. Psychiatric: Cooperative, appropriate mood & affect, normal judgment. Limitations: no limitations Course Vital Signs 06/07/18 16:12 Temperature 98.4 F Pulse Rate 73 Respiratory 18 Rate Blood Pressure 166/74 O2 Sat by Pulse 98 Oximetry Medical Decision Making - Medical Decision Making X-rays reviewed and does show a fracture of the midshaft of the right radius. Patient's superficial skin tear was irrigated and cleaned here in emergency room. Also dressing placed over top. Patient has been splinted in a sugar tone splint to the right forearm. Neurovascular rechecked and intact. Patient advised follow-up with orthopedics tomorrow. Patient will given short prescription of [place] to go home with for pain. Opiate start talking form has been discussed and filled out. Disposition Clinical Impression: Forearm fracture Disposition: HOME SELF-CARE Instructions (If sedation given, give patient instructions): Arm Fracture in Adults (ED) Additional Instructions: Please leave splint placed falls orthopedics over the next 2 days. Please continue to ice elevate the affected area and use medication as prescribed. Return here to emergency room if any symptoms increase or worsen or for any other concerns. Prescriptions: Hydrocodone/Acetaminophen [[place] 5-325] 1 each PO Q6HR PRN #12 tab PRN Reason: Pain Is patient prescribed a controlled substance at d/c from ED?: Yes If prescribed controlled substance>3 days was MAPS reviewed?: Prescribed <3 Days Referrals: Daquan Collier DO [Primary Care Provider] - 1-2 days Jun Ni DO [Doctor of Osteopathic Medicine] - 1-2 days Time of Disposition: 17:18
[2018-06-07] MEDS ORDERED: HYDROcodone/APAP 5-325MG 1 EACH TAB PO STA (17:02)
--- NOTE | 2018-06-07 17:18 | XR ---
PROCEDURE: XR wrist complete RT - 4V DATE AND TIME: 06/07/2018 4:57 PM CLINICAL INDICATION: PHH; Pain TECHNIQUE: AP lateral and oblique views, and a dedicated scaphoid view. COMPARISON: None FINDINGS: There is a transverse fracture of the distal radius shaft, with minimal apex volar angulati on. There is 3 mm displacement laterally, but no displacement in the AP plane. The articulations are congruent. No other fracture. Soft tissue swelling over the wrist and distal forearm is noted. IMPRESSION: RADIAL SHAFT FRACTURE.
--- NOTE | 2018-06-07 17:19 | XR ---
PROCEDURE: XR forearm RT - 2V DATE AND TIME: 06/07/2018 4:57 PM CLINICAL INDICATION: PHH; Pain TECHNIQUE: AP and lateral views from the elbow to wrist. COMPARISON: None FINDINGS: There is a transverse fracture of the distal radius shaft, with minimal apex volar angulati on. There is 3 mm displacement laterally, but no displacement in the AP plane. The articulations are congruent. No other fracture. Soft tissue swelling over the wrist and distal forearm is noted. IMPRESSION: RADIAL SHAFT FRACTURE.
[2018-06-07 17:50] VITALS: BP 150/70
== END 2018-06-07 17:48 | disposition home or self-care (01) ==
LOC: EC 16:06
DX: S52.301A Unspecified fracture of shaft of right radius, initial encounter for closed fracture (principal); K21.9 Gastro-esophageal reflux disease without esophagitis; E78.5 Hyperlipidemia, unspecified; I10 Essential (primary) hypertension; M19.90 Unspecified osteoarthritis, unspecified site; Z87.891 Personal history of nicotine dependence; Z79.82 Long term (current) use of aspirin; Z79.899 Other long term (current) drug therapy; Z85.46 Personal history of malignant neoplasm of prostate; Z92.3 Personal history of irradiation; Z23 Encounter for immunization; W10.9XXA Fall (on) (from) unspecified stairs and steps, initial encounter; Y93.89 Activity, other specified; Y92.008 Other place in unspecified non-institutional (private) residence as the place of occurrence of the external cause
CPT/HCPCS: 29105; 90471; 90715; 99283

== ENCOUNTER 2018-09-20 22:38 | Inpatient (IN) | payer MEDICARE ==
--- NOTE | 2018-09-20 22:58 | ED ---
General Adult HPI - General Chief complaint: Chest Pain Stated complaint: chest pain Time Seen by Provider: 09/20/18 22:42 Source: patient, EMS Mode of arrival: ambulatory Limitations: no limitations - History of Present Illness Initial comments: Dictation was produced using [employer] dictation software. please excuse any grammatical, word or spelling errors. Chief Complaint: 78-year-old male past medical history of prostate cancer, transurethral replacement presents with two-hour episode of chest pain. History of Present Illness: Patient is an 78-year-old male with multiple comorbidities presents today with chest pain. Patient reports that 2 hours prior to arrival he had an episode of chest heaviness. States pain was substernal as if there was something sitting on his chest. Patient was diaphoretic. He reports that the symptoms radiated to his bilateral upper extremities. His past medical history of aortic valve stenosis status post trans-aortic valve replacement. He also has history of coronary artery disease. EMS was called and patient was brought to the emergency department. He was provided patient with aspirin and intravenous line. He was reports that prehospital EKG was suggestive of these ST depressions. His symptoms improved after he was given nitroglycerin. She states his symptoms are much improved while I bedside. Currently denies any chest pain. The ROS documented in this emergency department record has been reviewed and confirmed by me. Those systems with pertinent positive or negative responses have been documented in the HPI. All other systems are other negative and/or n oncontributory. PHYSICAL EXAM: General Impression: Alert and oriented x3, not in acute distress HEENT: Normocephalic atraumatic, extra-ocular movements intact, pupils equal and reactive to light bilaterally, mucous membranes moist. Cardiovascular: Heart regular rate and rhythm, S1&S2 audible, no murmurs, rubs or gallops Chest: Lungs clear to auscultation bilaterally, no rhonchi, no wheeze, no rales Abdomen: Bowel sounds present, abdomen soft, non-tender, non-distended, no organomegaly Musculoskeletal: Pulses present and equal in all extremities, no peripheral edema Motor: no focal deficits noted Neurological: CN II-XII grossly intact, no focal motor or sensory deficits noted Skin: Intact with no visualized rashes Psych: Normal affect and mood ED course: 78-year-old male presents with chest pain concerning for acute coronary syndrome vital signs upon arrival are within acceptable limits. EKG does not suggest ST segment elevation DE. no Ischemic changes noted currently. No old EKG for comparison. While in emergency department for approximately 40 minutes patient began having chest pain. He is diaphoretic and is feeling nauseated. Repeat EKG was performed showing diffuse ST depression with ST elevation in aVR. Given patient's clinical presentation Classifying Machine Operator was activated. Chart was reviewed patient has history of cardiac catheterization in February of this year. 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 There is recommendation to have coronary artery bypass grafting to this lesion. He did not get the CABG and was told his railroad brake repairer that they would manage medically for now. Discussed patient case with Dr. Landaverde who is aware patient.Lab evaluation obtained. CBC unremarkable. Metabolic panel is negative. Troponin 0.014. Chest x-ray shows no acute findings. Patient disposition to sanitation laborer. Patient be admitted to Dr. Lunsford. EKG interpretation: Ventricular rate 84, normal sinus rhythm,. 194, QRS 96, QTC 463.. No LA prolongation, no QTC prolongation, hyperacute T waves in V1. . - Related Data Home Medications Medication Instructions Recorded Confirmed Lisinopril [Zestril] 20 mg PO DAILY 07/27/13 09/20/18 Simvastatin [Zocor] 20 mg PO DAILY 07/27/13 09/20/18 Omeprazole 40 mg PO DAILY 08/23/16 09/20/18 Aspirin [Adult Low Dose Aspirin EC] 162 mg PO HS 11/09/16 09/20/18 Metoprolol Tartrate 25 mg PO HS 09/20/18 09/20/18 Allergies Allergy/AdvReac Type Severity Reaction Status Date / Time amlodipine [From [facility]] Allergy Unknown Verified 09/20/18 22:54 Review of Systems ROS Statement: Those systems with pertinent positive or pertinent negative responses have been documented in the HPI. ROS Other: All systems not noted in ROS Statement are negative. Past Medical History Past Medical History: GERD/Reflux, Hyperlipidemia, Hypertension, Osteoarthritis (OA), Prostate Disorder, Skin Disorder Additional Past Medical History / Comment(s): Episodes of dizziness and presyncope. Prostate CA dx 2014 approx-received high definition radiation 1 treatment. Psoriasis History of Any Multi-Drug Resistant Organisms: None Reported Past Surgical History: Orthopedic Surgery, Tonsillectomy Additional Past Surgical History / Comment(s): 12/27/17 JEZ. BILATERAL shoulders. URETHRA REPAIR. Past Anesthesia/Blood Transfusion Reactions: No Reported Reaction Past Psychological History: Anxiety, Depression Smoking Status: Former smoker Past Alcohol Use History: Occasional Past Drug Use History: None Reported - Past Family History Mother Family Medical History: No Reported History General Exam Limitations: no limitations Course Vital Signs 09/20/18 09/20/18 09/20/18 22:39 22:41 22:50 Temperature 98.6 F Pulse Rate 80 74 Respiratory 18 15 Rate Blood Pressure 153/73 153/73 O2 Sat by Pulse 98 96 99 Oximetry 09/20/18 09/20/18 09/20/18 23:10 23:16 23:35 Temperature 98.3 F 99.3 F Pulse Rate 70 70 76 Respiratory 11 L 18 18 Rate Blood Pressure 160/97 160/97 158/54 O2 Sat by Pulse 99 100 99 Oximetry 09/20/18 09/20/18 23:44 23:54 Temperature Pulse Rate 72 68 Respiratory 18 18 Rate Blood Pressure 164/49 139/44 O2 Sat by Pulse 99 99 Oximetry Medical Decision Making - Lab Data Result diagrams: 09/20/18 22:53 09/20/18 22:53 Lab Results 09/20/18 09/20/18 09/20/18 Range/Units 22:53 22:53 22:53 WBC 5.6 (3.8-10.6) k/uL RBC 4.21 L (4.30-5.90) m/uL Hgb 12.1 L (13.0-17.5) gm/dL Hct 35.6 L (39.0-53.0) % MCV 84.6 (80.0-100.0) fL MCH 28.9 (25.0-35.0) pg MCHC 34.1 (31.0-37.0) g/dL RDW 14.3 (11.5-15.5) % Plt Count 181 (150-450) k/uL Neutrophils % 62 % Lymphocytes % 22 % Monocytes % 9 % Eosinophils % 5 % Basophils % 1 % Neutrophils # 3.4 (1.3-7.7) k/uL Lymphocytes # 1.2 (1.0-4.8) k/uL Monocytes # 0.5 (0-1.0) k/uL Eosinophils # 0.3 (0-0.7) k/uL Basophils # 0.0 (0-0.2) k/uL Sodium 142 (137-145) mmol/L Potassium 3.9 (3.5-5.1) mmol/L Chloride 109 H (98-107) mmol/L Carbon Dioxide 23 (22-30) mmol/L Anion Gap 10 mmol/L BUN 26 H (9-20) mg/dL Creatinine 1.00 (0.66-1.25) mg/dL Est GFR (CKD-EPI)AfAm 82 (>60 ml/min/1.73 sqM) Est GFR (CKD-EPI)NonAf 71 (>60 ml/min/1.73 sqM) Glucose 137 H (74-99) mg/dL Calcium 8.9 (8.4-10.2) mg/dL Magnesium 1.8 (1.6-2.3) mg/dL Total Bilirubin 0.3 (0.2-1.3) mg/dL AST 23 (17-59) U/L ALT 21 (21-72) U/L Alkaline Phosphatase 83 (38-126) U/L Troponin I 0.014 (0.000-0.034) ng/mL Total Protein 6.1 L (6.3-8.2) g/dL Albumin 3.6 (3.5-5.0) g/dL Disposition Clinical Impression: STEMI (ST elevation myocardial infarction) Disposition: ADMITTED IP TO THIS HOSP Condition: Critical Referrals: Daquan Collier DO [Primary Care Provider] - 1-2 days Decision Time: 00:05
[2018-09-20 23:02] LABS: Basophils % (A) 1 %; Eosinophils # (A) 0.3 k/uL (0-0.7); Eosinophils % (A) 5 %; HCT 35.6 % (39.0-53.0); HGB 12.1 gm/dL (13.0-17.5); Lymphocytes # (A) 1.2 k/uL (1.0-4.8); Lymphocytes % (A) 22 %; MCH 28.9 pg (25.0-35.0); MCHC 34.1 g/dL (31.0-37.0); MCV 84.6 fL (80.0-100.0); Mean Platelet Volume 6.8; Monocytes # (A) 0.5 k/uL (0-1.0); Monocytes % (A) 9 %; Neutrophils # (A) 3.4 k/uL (1.3-7.7); Neutrophils % (A) 62 %; Platelet Count 181 k/uL (150-450); RBC 4.21 m/uL (4.30-5.90); RDW 14.3 % (11.5-15.5); WBC 5.6 k/uL (3.8-10.6)
[2018-09-20 23:10] LABS: INR 0.9 (<1.2); Partial Thromboplastin Time 22.6 sec (22.0-30.0); Prothrombin Time 9.8 sec (9.0-12.0)
[2018-09-20 23:11] LABS: Albumin 3.6 g/dL (3.5-5.0); Calcium 8.9 mg/dL (8.4-10.2); Magnesium 1.8 mg/dL (1.6-2.3); Potassium 3.9 mmol/L (3.5-5.1); Total Bilirubin 0.3 mg/dL (0.2-1.3); Total Protein 6.1 g/dL (6.3-8.2)
--- NOTE | 2018-09-20 23:24 | XR ---
EXAM: XR Chest, 1 View CLINICAL HISTORY: Chest pain TECHNIQUE: Frontal view of the chest. COMPARISON: Chest x-ray dated 03/02/2017 FINDINGS: Lungs: Unremarkable. No consolidation. Pleural space: Unremarkable. No pneumothorax. Heart: Evidence of a TAVR. No cardiomegaly. Mediastinum: Unremarkable. Bones/joints: Tendon anchors project over both humeral heads. Soft tissues: Unremarkable. IMPRESSION: No acute findings.
[2018-09-20] MEDS: NITROGLYCERIN SL TABS 0.4 MG TAB SUBLINGUAL PRN ×2 (23:25→23:30)
[2018-09-20] MEDS ORDERED: HEPARIN SODIUM,PORCINE 5,000 UNIT/ML 1 ML VIAL IV STA (23:33)
[2018-09-21] MEDS ORDERED: LIDOCAINE 1% INJ 10MG/ML (20 ML MDV) ONE (00:04)
[2018-09-21] MEDS ORDERED: NALOXONE 0.4 MG/ML 1 ML VIAL IV PRN (00:05)
[2018-09-21] MEDS ORDERED: LIDOCAINE 1% INJ 10MG/ML (20 ML MDV) SQ ONE (00:20)
[2018-09-21] MEDS ORDERED: MIDAZOLAM (PF) 2 MG/2 ML VIAL IVP ONE (00:20)
[2018-09-21] MEDS ORDERED: ENALAPRILAT 1.25 MG/ML 1 ML VIAL ONE (00:21)
[2018-09-21] MEDS ORDERED: hydrALAZINE HCL 20 MG/ML 1 ML VIAL ONE (00:21)
[2018-09-21] MEDS ORDERED: ENALAPRILAT 1.25 MG/ML 1 ML VIAL IVP ONE (00:22)
[2018-09-21] MEDS: hydrALAZINE HCL 20 MG/ML 1 ML VIAL IV ONE ×2 (00:22→00:30)
[2018-09-21] MEDS ORDERED: IV FLUID CONTINUATION 900 ML IV ONE ×2 (00:27)
[2018-09-21] MEDS ORDERED: FUROSEMIDE 10 MG/ML 4 ML VIAL ONE (00:29)
[2018-09-21] MEDS: FUROSEMIDE 10 MG/ML 4 ML VIAL IV ONE ×2 (00:32→00:45)
[2018-09-21] MEDS ORDERED: IOPAMIDOL-370 50ML BTL INJ ONE (00:39)
[2018-09-21] MEDS ORDERED: IOPAMIDOL-370 125ML BTL INJ ONE (00:39)
[2018-09-21] MEDS ORDERED: METOPROLOL TARTRATE 5 MG/5 ML VIAL IVP ONE ×2 (00:44→00:45)
--- NOTE | 2018-09-21 01:02 | P.CRDCN ---
History of Present Illness Consult date: 09/21/18 Chief complaint: Chest discomfort History of present illness: This is an 78-year-old gentleman who sees Dr. Dr. Jara as an outpatient with a past medical history significant for valvular heart disease where the patient underwent in February 2018 transcutaneous aortic valve replacement at [facility] in [place], before that a heart catheterization was performed and revealed mild nonobstructive coronary artery disease, hypertension, and dyslipidemia, presented to the emergency room complaining of chest discomfort. He was in his usual state of health until earlier today, when he started experiencing discomfort in the mid of the chest, as a heaviness on the chest, without any radiation to the arm or neck or shoulders but he was experiencing diaphoresis. Because of that, EMS was called and the patient was brought to the emergency room. In the emergency room, an EKG was performed and revealed ST segment elevation in aVR with diffuse ST segment depression quite concerning for severe triple-vessel coronary artery disease or left main coronary artery disease. Because of that, and because of the ongoing chest discomfort, a heart catheterization was advised. The patient underwent a heart catheterization via right femoral approach and that revealed mild nonobstructive coronary artery disease. The wire accidentally across aortic valve and because of that I did perform left heart catheterization and that showed severe alleviated LVEDP which was about 24 mmHg. When the patient arrived to the emergency room, his systolic blood pressure was about 200 mmHg with significant pulse pressure. By the end of the procedure, I did perform an aortic root angiogram and that revealed 4+ aortic insufficiency. By the end of the procedure, the patient was almost chest pain-free. His pressure came down after he was given Vasotec as well as hydralazine. Once the blood pressure came in down his symptoms of chest discomfort has improved as well. The chest x-ray in the emergency room came in to be unremarkable. The troponin came in to be unremarkable. The rest of blood work came in to be unremarkable as well. Past Medical History Past Medical History: GERD/Reflux, Hyperlipidemia, Hypertension, Osteoarthritis (OA), Prostate Disorder, Skin Disorder Additional Past Medical History / Comment(s): Episodes of dizziness and presyncope. Prostate CA dx 2014 approx-received high definition radiation 1 treatment. Psoriasis History of Any Multi-Drug Resistant Organisms: None Reported Past Surgical History: Orthopedic Surgery, Tonsillectomy Additional Past Surgical History / Comment(s): 12/27/17 JEZ. BILATERAL shoulders. URETHRA REPAIR. Past Anesthesia/Blood Transfusion Reactions: No Reported Reaction Past Psychological History: Anxiety, Depression Smoking Status: Former smoker Past Alcohol Use History: Occasional Past Drug Use History: None Reported - Past Family History Mother Family Medical History: No Reported History Medications and Allergies Home Medications Medication Instructions Recorded Confirmed Type Lisinopril [Zestril] 20 mg PO DAILY 07/27/13 09/20/18 History Simvastatin [Zocor] 20 mg PO DAILY 07/27/13 09/20/18 History Omeprazole 40 mg PO DAILY 08/23/16 09/20/18 History Aspirin [Adult Low Dose Aspirin EC] 162 mg PO HS 11/09/16 09/20/18 History Metoprolol Tartrate 25 mg PO HS 09/20/18 09/20/18 History Allergies Allergy/AdvReac Type Severity Reaction Status Date / Time amlodipine [From [facility]] Allergy Unknown Verified 09/20/18 22:54 Physical Exam Vitals: Vital Signs Temp Pulse Resp BP Pulse Ox 09/21/18 00:00 67 18 166/63 98 09/20/18 23:54 68 18 139/44 99 09/20/18 23:44 72 18 164/49 99 09/20/18 23:35 99.3 F 76 18 158/54 99 09/20/18 23:16 98.3 F 70 18 160/97 100 09/20/18 23:10 70 11 L 160/97 99 09/20/18 22:50 74 15 153/73 99 09/20/18 22:41 96 09/20/18 22:39 98.6 F 80 18 153/73 98 Intake and Output 09/20/18 09/20/18 09/21/18 14:59 22:59 06:59 Intake Total 75 Balance 75 Intake: IV 75 Other: Weight 71.214 kg - Constitutional General appearance: no acute distress - Respiratory Respiratory: bilateral: CTA - Cardiovascular Rhythm: regular Heart sounds: normal: S1, S2 Abnormal Heart Sounds: systolic murmur Results 09/20/18 22:53 09/20/18 22:53 Cardiac Enzymes 09/20/18 09/20/18 Range/Units 22:53 22:53 AST 23 (17-59) U/L Troponin I 0.014 (0.000-0.034) ng/mL CBC 09/20/18 Range/Units 22:53 WBC 5.6 (3.8-10.6) k/uL RBC 4.21 L (4.30-5.90) m/uL Hgb 12.1 L (13.0-17.5) gm/dL Hct 35.6 L (39.0-53.0) % Plt Count 181 (150-450) k/uL Comprehensive Metabolic Panel 09/20/18 Range/Units 22:53 Sodium 142 (137-145) mmol/L Potassium 3.9 (3.5-5.1) mmol/L Chloride 109 H (98-107) mmol/L Carbon Dioxide 23 (22-30) mmol/L BUN 26 H (9-20) mg/dL Creatinine 1.00 (0.66-1.25) mg/dL Glucose 137 H (74-99) mg/dL Calcium 8.9 (8.4-10.2) mg/dL AST 23 (17-59) U/L ALT 21 (21-72) U/L Alkaline Phosphatase 83 (38-126) U/L Total Protein 6.1 L (6.3-8.2) g/dL Albumin 3.6 (3.5-5.0) g/dL Current Medications Generic Name Dose Route Start Last Admin Trade Name Freq PRN Reason Stop Dose Admin Furosemide 40 mg 09/21/18 09:00 Lasix IV Q12HR [facility] Hydralazine HCl 10 mg 09/21/18 00:53 Apresoline IV Q4HR PRN Blood Pressure - High Lisinopril 20 mg 09/21/18 09:00 Zestril PO DAILY [facility] Metoprolol Tartrate 25 mg 09/21/18 21:00 Lopressor PO HS [facility] Naloxone HCl 0.2 mg 09/21/18 00:05 Narcan IV Q2M PRN Opioid Reversal Nitroglycerin 0.4 mg 09/20/18 23:29 09/20/18 23:30 Nitrostat SUBLINGUAL 0.4 mg Q5M PRN Administration Chest Pain Non-Formulary Medication 162 mg 09/21/18 21:00 Aspirin [Adult Low Dose Aspirin Ec] PO HS [facility] Non-Formulary Medication 40 mg 09/21/18 09:00 Omeprazole [Omeprazole] PO DAILY [facility] Non-Formulary Medication 20 mg 09/21/18 09:00 Simvastatin PO DAILY [facility] Intake and Output 09/20/18 09/20/18 09/21/18 14:59 22:59 06:59 Intake Total 75 Balance 75 Intake: IV 75 Other: Weight 71.214 kg Patient Weight 09/21/18 06:59 Weight 71.214 kg 09/20/18 22:53 09/20/18 22:53 Assessment and Plan Assessment: Assessment #1 hypertension emergency #2 severe aortic insufficiency #3 status post TAVR recently #4 mild nonobstructive coronary artery disease Plan #1 ICU admission #2 diuretics. The patient will be started on Lasix IV #3 monitor the kidney function and electrolytes #4 transthoracic echocardiogram and transesophageal echocardiogram #5 continue his current medical regimen including the aspirin #6 continue metoprolol as well as lisinopril #7 add hydralazine to lower the pressure when necessary #8 follow-up with the patient We will also obtain cardiothoracic surgery consult. We'll continue following up with him. Thank you for allowing us participate in his care
[2018-09-21 01:35] LABS: Glucose,Whole Blood 129 mg/dL (75-99)
[2018-09-21 01:53] VITALS: BMI 20.7
[2018-09-21 05:21] LABS: HCT 34.6 % (39.0-53.0); HGB 11.8 gm/dL (13.0-17.5); MCH 29.1 pg (25.0-35.0); MCHC 34.1 g/dL (31.0-37.0); MCV 85.4 fL (80.0-100.0); Mean Platelet Volume 7.7; Platelet Count 156 k/uL (150-450); RBC 4.05 m/uL (4.30-5.90); RDW 15.5 % (11.5-15.5); WBC 6.8 k/uL (3.8-10.6)
[2018-09-21 05:30] LABS: Calcium 9.1 mg/dL (8.4-10.2)
[2018-09-21] MEDS: hydrALAZINE HCL 20 MG/ML 1 ML VIAL IV PRN ×2 (07:11→15:38)
--- NOTE | 2018-09-21 07:27 | P.PN ---
Subjective Progress Note Date: 09/21/18 Principal diagnosis: Acute coronary syndrome This is a 17-year-old gentleman who sees Dr. Jara in the office as an outpatient with a past medical history significant for aortic valve disease and status post TAVR in April 2018 was brought to the hospital by ambulance with a chest discomfort and the EKG showed ST segment elevation in aVR was diffuse segment depression concerning for severe underlying coronary artery disease. Subsequently the patient was taken to the cardiac general laborer where he underwent an emergent heart catheterization which revealed mild nonobstructive coronary artery disease. Beside that he underwent aortic root angiogram which revealed 4+ aortic insufficiency. On follow-up with him today, overall he is feeling better. He seems to be chest pain-free. The blood pressure has improved but not normalized yet. I am going to increase the dose of lisinopril for better blood pressure control. Continue the rest of his current medical regimen. Follow-up on the echocardiogram which is going to be done this morning. Possibly the patient need to have a JEZ. Also I would continue IV diuretics on him. Objective - Vital Signs Vital signs: Vital Signs Temp 98.3 F 09/21/18 04:00 Pulse 66 09/21/18 07:00 Resp 11 L 09/21/18 07:00 BP 152/46 09/21/18 07:00 Pulse Ox 98 09/21/18 07:00 Intake & Output 09/20/18 09/21/18 09/21/18 18:59 06:59 18:59 Intake Total 210 10 Output Total 2049 60 Balance -1840 -50 Weight 70.9 kg Intake: IV 210 10 0.9 NaCl 135 10 Output: Urine 2049 60 Other: Voiding Method Indwelling Catheter ABP, PAP, CO, CI - Last Documented Arterial Blood Pressure 185/37 - Constitutional General appearance: Present: no acute distress - Respiratory Respiratory: bilateral: CTA - Cardiovascular Rhythm: regular Heart sounds: normal: S1, S2 Abnormal Heart Sounds: Present: systolic murmur - Labs CBC & Chem 7: 09/21/18 05:05 09/21/18 05:05 Labs: Abnormal Lab Results - Last 24 Hours (Table) 09/20/18 09/20/18 09/21/18 Range/Units 22:53 22:53 01:19 RBC 4.21 L (4.30-5.90) m/uL Hgb 12.1 L (13.0-17.5) gm/dL Hct 35.6 L (39.0-53.0) % Chloride 109 H (98-107) mmol/L BUN 26 H (9-20) mg/dL Glucose 137 H (74-99) mg/dL POC Glucose (mg/dL) 129 H (75-99) mg/dL Total Protein 6.1 L (6.3-8.2) g/dL 09/21/18 09/21/18 Range/Units 05:05 05:05 RBC 4.05 L (4.30-5.90) m/uL Hgb 11.8 L (13.0-17.5) gm/dL Hct 34.6 L (39.0-53.0) % Chloride 109 H (98-107) mmol/L BUN 26 H (9-20) mg/dL Glucose 126 H (74-99) mg/dL POC Glucose (mg/dL) (75-99) mg/dL Total Protein (6.3-8.2) g/dL Assessment and Plan Assessment: Assessment #1 hypertension emergency #2 severe aortic insufficiency #3 status post TAVR recently #4 mild nonobstructive coronary artery disease Plan #1 follow-up on the echocardiogram #2 increase the dose of lisinopril #3 continue IV diuretics #4 continue monitor the kidney function and electrolytes #5 follow-up with the patient
--- NOTE | 2018-09-21 07:32 | CC ---
CARDIAC CATHETERIZATION REPORT DATE OF SERVICE: 09/20/2018 PERFORMING PHYSICIAN: Cameron Cornejo MD. PROCEDURE PERFORMED: 1. Selective right and left coronary angiogram. 2. Left heart catheterization. 3. Aortic root angiogram. INDICATION: This is an 78-year-old gentleman who sees Dr. Jara in the office as an outpatient with history of transcutaneous aortic valve replacement in February of 2018, presented to the emergency room by ambulance with chest discomfort. The EKG was concerning for acute ST-segment elevation and because of the ongoing chest discomfort, an emergent heart catheterization was advised. APPROACH: Right common femoral artery. COMPLICATION: None. LEVEL OF SEDATION: Moderate with sedation length of 30 minutes. PROCEDURE DESCRIPTION: After obtaining an informed consent, the patient was brought to the cardiac laborer orchard. The right common femoral artery was cannulated using micropuncture technique, the micropuncture wire passed easily. Then I placed a 6-Turkmen sheath in the right common femoral artery. I did selective right and left coronary angiogram using JR4 and JL3.5 catheters. The 0.035 wire across aortic valve. Then I pushed the catheter across it, which was a JR4 catheter. Then I did leave heart catheterization. After that, I did aortic root angiogram. Please see a separate paragraph for that. SELECTIVE CORONARY ANGIOGRAM: 1. The right coronary artery is a large caliber vessel. It is a dominant vessel and appeared to have mild disease only. It distally bifurcates into PDA and PLV branches, both appeared to be angiographically normal. 2. The left main is angiographically normal. It bifurcates into left circumflex and left anterior descending artery. 3. The left circumflex is a large caliber vessel and it is a nondominant vessel. The proximal circumflex has mild disease only. The mid circumflex has intermediate disease only and gives rise into a large OM branch which seems to be angiographically normal. The circumflex distally appeared to be angiographically normal. 4. The LAD, the proximal LAD appeared to be normal. The mid LAD has mild disease only and gives rise into a large diagonal branch which has intermediate lesion and its ostium appeared to be in the range of 50%. The LAD in the mid to distal portion has mild disease only. 5. Aortic root angiogram, the aortic root angiogram was performed in the [place] projection and using a power injection. The aortic root angiogram revealed 4+ aortic insufficiency. CONCLUSION: 1. Intermediate nonobstructive coronary artery disease. 2. A 4+ aortic insufficiency. POSTPROCEDURE MANAGEMENT: 1. ICU admission. 2. Aortic IV. 3. An echocardiogram in the morning. 4. Possible JEZ in the morning. 5. Blood pressure control. 6. Follow up with the patient. MMODL / IJN: [id number] /
[2018-09-21] MEDS: PANTOPRAZOLE 40 MG TABLET PO SCH (08:32)
[2018-09-21] MEDS: LISINOPRIL 10 MG TAB PO SCH (08:32)
[2018-09-21] MEDS: ATORVASTATIN 10 MG TAB PO SCH (08:32)
[2018-09-21] MEDS: FUROSEMIDE 10 MG/ML 4 ML VIAL IV SCH ×2 (08:33→21:20)
[2018-09-21] MEDS ORDERED: LISINOPRIL 20 MG TAB PO SCH (09:00)
[2018-09-21] MEDS ORDERED: ENALAPRILAT 1.25 MG/ML 1 ML VIAL IVP STA (10:11)
[2018-09-21] MEDS ORDERED: ATROPINE SULFATE 0.1 MG/ML 10ML SYRINGE ONE (10:15)
--- NOTE | 2018-09-21 11:16 | P.GSCN ---
History of Present Illness Consult date: 09/21/18 Reason for Consult: Aortic valve insufficiency status post transcatheter aortic valve replacement, recommendations Requesting physician: Cameron Cornejo History of present illness: This is an 78-year-old gentleman who follows on an outpatient basis with Dr. Daquan Collier and Dr. Jara of [facility]. He has a previous medical history of aortic stenosis status post transcatheter aortic valve replacement in April 2018 at [facility] in [place], nonobstructive coronary artery disease, hypertension, hyperlipidemia, prostate cancer diagnosed in 2014 with one radiation treatment and current hormone injections, osteoarthritis, and depression. He presented to [facility] emergency room last night with complaints of substernal chest heaviness associated with shortness of breath, diaphoresis, radiation to both arms, and improvement with sublingual nitro. EKG was performed in the emergency room showing sinus rhythm with ST elevation in aVR and diffuse ST depressions. His systolic blood pressure was 200 mmHg. Chest x-ray demonstrated no acute process. STEMI alert was placed and patient was taken to the cardiac catheterization lab with redemonstration of mild nonobstructive coronary artery disease but 4+ aortic insufficiency. The patient was admitted to the intensive care unit with consultation placed for cardiothoracic surgery. Review of Systems Review of systems was completed and was negative except as noted. - Constitutional Reports as per HPI, Reports sweats - Cardiovascular Reports as per HPI, Reports chest pain, Reports high blood pressure, Reports lightheadedness, Reports shortness of breath Past Medical History Past Medical History: Coronary Artery Disease (CAD), Chest Pain / Angina, GERD/Reflux, Hyperlipidemia, Hypertension, Osteoarthritis (OA), Prostate Disorder, Skin Disorder Additional Past Medical History / Comment(s): Episodes of dizziness and presyncope. Prostate CA dx 2014 approx-received high definition radiation 1 treatment, currently receiving hormone injections. Psoriasis History of Any Multi-Drug Resistant Organisms: None Reported Past Surgical History: Cardiac Valve Replacement, Heart Catheterization, Orthopedic Surgery, Tonsillectomy Additional Past Surgical History / Comment(s): 12/27/17 JEZ. BILATERAL shoulders. URETHRA REPAIR. TAVR 04/2018 Past Anesthesia/Blood Transfusion Reactions: No Reported Reaction Past Psychological History: Anxiety, Depression Smoking Status: Former smoker Past Alcohol Use History: Occasional Additional Past Alcohol Use History / Comment(s): quit smoking , smoked socially <1 pp week,started smoking at age 16 Past Drug Use History: None Reported - Past Family History Mother Family Medical History: No Reported History Medications and Allergies Home Medications Medication Instructions Recorded Confirmed Type Lisinopril [Zestril] 20 mg PO DAILY 07/27/13 09/20/18 History Simvastatin [Zocor] 20 mg PO DAILY 07/27/13 09/20/18 History Omeprazole 40 mg PO DAILY 08/23/16 09/20/18 History Aspirin [Adult Low Dose Aspirin EC] 162 mg PO HS 11/09/16 09/20/18 History Metoprolol Tartrate 25 mg PO HS 09/20/18 09/20/18 History Allergies Allergy/AdvReac Type Severity Reaction Status Date / Time amlodipine [From [facility]] Allergy Unknown Verified 09/20/18 22:54 Surgical - Exam Vital Signs Temp Pulse Resp BP Pulse Ox 98.6 F 80 18 153/73 98 09/20/18 22:39 09/20/18 22:39 09/20/18 22:39 09/20/18 22:39 09/20/18 22:39 - General well developed, well nourished, no distress, no pain - Eyes PERRL, normal ocular movement - ENT no hearing loss - Neck no masses, trachea midline carotid bruit: bilateral - Respiratory Lungs sounds clear bilaterally. Respirations even, nonlabored. Currently on room air with oxygen saturation 96%. No chest wall deformities. No clubbing or cyanosis. - Cardiovascular S1, S2 present. Positive systolic murmur. Regular rate and rhythm, sinus rhythm on telemetry. Palpable peripheral pulses bilaterally. No edema present. No calf pain or tenderness noted. Right femoral artery heart catheterization site soft, without drainage - Abdomen Abdomen: soft, non tender, bowel sounds - Genitourinary Ayala present draining clear, yellow urine. - Rectum Deferred - Integumentary Deferred - Neurologic normal coordination, normal sensation - Musculoskeletal normal posture - Psychiatric oriented to time, oriented to person, oriented to place, speech is normal, memory intact Results - Labs 09/21/18 05:05 09/21/18 05:05 Abnormal Lab Results - Last 24 Hours (Table) 09/20/18 09/20/18 09/21/18 Range/Units 22:53 22:53 01:19 RBC 4.21 L (4.30-5.90) m/uL Hgb 12.1 L (13.0-17.5) gm/dL Hct 35.6 L (39.0-53.0) % Chloride 109 H (98-107) mmol/L BUN 26 H (9-20) mg/dL Glucose 137 H (74-99) mg/dL POC Glucose (mg/dL) 129 H (75-99) mg/dL Total Protein 6.1 L (6.3-8.2) g/dL 09/21/18 09/21/18 Range/Units 05:05 05:05 RBC 4.05 L (4.30-5.90) m/uL Hgb 11.8 L (13.0-17.5) gm/dL Hct 34.6 L (39.0-53.0) % Chloride 109 H (98-107) mmol/L BUN 26 H (9-20) mg/dL Glucose 126 H (74-99) mg/dL POC Glucose (mg/dL) (75-99) mg/dL Total Protein (6.3-8.2) g/dL Diabetes panel 09/20/18 09/21/18 Range/Units 22:53 05:05 Sodium 142 140 (137-145) mmol/L Potassium 3.9 4.0 (3.5-5.1) mmol/L Chloride 109 H 109 H (98-107) mmol/L Carbon Dioxide 23 22 (22-30) mmol/L BUN 26 H 26 H (9-20) mg/dL Creatinine 1.00 0.99 (0.66-1.25) mg/dL Glucose 137 H 126 H (74-99) mg/dL Calcium 8.9 9.1 (8.4-10.2) mg/dL AST 23 (17-59) U/L ALT 21 (21-72) U/L Alkaline Phosphatase 83 (38-126) U/L Total Protein 6.1 L (6.3-8.2) g/dL Albumin 3.6 (3.5-5.0) g/dL Calcium panel 09/20/18 09/21/18 Range/Units 22:53 05:05 Calcium 8.9 9.1 (8.4-10.2) mg/dL Albumin 3.6 (3.5-5.0) g/dL Pituitary panel 09/20/18 09/21/18 Range/Units 22:53 05:05 Sodium 142 140 (137-145) mmol/L Potassium 3.9 4.0 (3.5-5.1) mmol/L Chloride 109 H 109 H (98-107) mmol/L Carbon Dioxide 23 22 (22-30) mmol/L BUN 26 H 26 H (9-20) mg/dL Creatinine 1.00 0.99 (0.66-1.25) mg/dL Glucose 137 H 126 H (74-99) mg/dL Calcium 8.9 9.1 (8.4-10.2) mg/dL Adrenal panel 09/20/18 09/21/18 Range/Units 22:53 05:05 Sodium 142 140 (137-145) mmol/L Potassium 3.9 4.0 (3.5-5.1) mmol/L Chloride 109 H 109 H (98-107) mmol/L Carbon Dioxide 23 22 (22-30) mmol/L BUN 26 H 26 H (9-20) mg/dL Creatinine 1.00 0.99 (0.66-1.25) mg/dL Glucose 137 H 126 H (74-99) mg/dL Calcium 8.9 9.1 (8.4-10.2) mg/dL Total Bilirubin 0.3 (0.2-1.3) mg/dL AST 23 (17-59) U/L ALT 21 (21-72) U/L Alkaline Phosphatase 83 (38-126) U/L Total Protein 6.1 L (6.3-8.2) g/dL Albumin 3.6 (3.5-5.0) g/dL - Imaging Chest x-ray: report reviewed, image reviewed EKG: image reviewed Additional studies: Heart catheterization films were reviewed with Dr. Stuart Assessment and Plan Assessment: 1. Aortic valve insufficiency with history of aortic stenosis, status post TAVR in April 2018 2. Nonobstructive coronary artery disease 3. History of hypertension with hypertensive emergency on admission 4. Hyperlipidemia Plan: The patient was seen and examined at the bedside in the intensive care unit with Dr. Stuart. Chart/diagnostics were reviewed including a heart catheterization films. Patient's daughter was at the bedside. At this time we recommend transesophageal echocardiogram to determine the extent and nature of the patient's aortic insufficiency. Once the JEZ has been obtained we will have further discussion with the patient and his family regarding repeat aortic valve replacement, either transcatheter or surgical approach. This was discussed in detail with the patient and his daughter and they are in agreement. This was discussed with Dr. Cornejo as well. Recommend continuing current medical management per cardiology. More recommendations to follow once JEZ has been obtained. Thank you Dr. Cornejo for this consult. We look forward to working with you in the care of your patient. Time with Patient: Greater than 30
--- NOTE | 2018-09-21 15:35 | HP ---
HISTORY AND PHYSICAL CHIEF COMPLAINT: Chest pain. HISTORY OF PRESENT ILLNESS: This is an 78-year-old gentleman with a past medical history of multiple medical problems including CAD, history of GERD, hypertension, hyperlipidemia, history of DJD, history of prostate disorder, history of anxiety, depression, being followed by Dr. Collier in the outpatient, complaining of severe chest pain. The pain is felt in the anterior part of the chest. Blood pressure was also elevated and pressure was constricting type and the pain was also radiating to the bilateral upper limbs and the patient came to [facility], admitted for further evaluation and treatment. The patient underwent a cardiac catheterization by Dr. Cornejo, which showed intermediate nonobstructive coronary artery disease and 4+ aortic insufficiency. Cardiothoracic surgery evaluation has been recommended and as well as a JEZ. There is no history of fever or rigors. No history of headache, loss of consciousness or seizures at this time. Initial troponin is 0.014. PAST MEDICAL HISTORY: History of CAD, history of chest pain, GERD, hypertension, hyperlipidemia, history of DJD, history of cardiac valve replacement by Dr. Etsrada previously. Aortic valve which is a bioprosthetic valve. History of anxiety, depression. History of nicotine dependence. MEDICATIONS: Prior to admission include home medications are: 1. Zocor 20 mg p.o. daily. 2. Omeprazole 40 mg p.o. daily. 3. Metoprolol 25 mg q.h.s. 4. Zestril 20 mg p. o. daily. 5. Aspirin 160 mg q.h.s. ALLERGIES: NORVASC. FAMILY HISTORY: No history of heart disease or strokes in the family. SOCIAL HISTORY: History of occasional alcohol intake. Previous history of smoking. REVIEW OF SYSTEMS: ENT: Diminished hearing, diminished vision. CARDIOVASCULAR SYSTEM: As mentioned earlier. RESPIRATION: As mentioned earlier. GI: No nausea. : No dysuria. NERVOUS SYSTEMS: No numbness or weakness. ALLERGY/IMMUNOLOGY: No asthma or hayfever. MUSCULOSKELETAL: As mentioned earlier. HEMATOLOGY: No history of anemia. ENDOCRINE: No history of diabetes or hypothyroidism. CONSTITUTIONAL: As mentioned earlier. DERMATOLOGY: Negative. PSYCHIATRY: As mentioned earlier. PHYSICAL EXAMINATION: Patient is alert and oriented x3, pulse is 79, blood pressure 152/43, respiration 10, temperature normal, pulse ox 97% on room air. HEENT: Conjunctivae normal. Oral mucosa moist. NECK: No jugular venous distention. CARDIOVASCULAR SYSTEM: S1, S2, muffled. Ejection systolic murmur and early diastolic murmur heard on the left sternal border present. RESPIRATORY: Breath sounds diminished at the bases, A few scattered rhonchi, no crackles. ABDOMEN: Soft, nontender. No mass palpable. LEGS: No edema, no swelling. NERVOUS SYSTEM: Higher functions as mentioned earlier. Moves all 4 limbs. No focal motor or sensory deficit. LYMPHATICS: No lymph node enlargement in the neck or axillae. SKIN: No ulcer, rash, or bleeding. JOINTS: No active deforming arthropathy. LABS: WBC is 6.8, hemoglobin is 12.1, sodium 142, potassium 3.9 glucose 137. ASSESSMENT: 1. Chest pain, possible unstable angina secondary to intermediate coronary artery disease. 2. Moderate severe aortic regurgitation 4+. 3. Anemia, normocytic anemia of chronic disease. 4. History of coronary artery disease. 5. History of gastroesophageal reflux disease. 6. Hypertension. 7. Hyperlipidemia. 8. History of degenerative joint disease. 9. History of prostate disorder. 10.History of prostate cancer. 11.History of psoriasis. 12.History of anxiety, depression. RECOMMENDATION: In this 78-year-old gentleman who presented with multiple complex medical issues, will monitor the patient closely. Continue with the current medication. Recommend follow closely with Cardiology. Possible TIA, Cardiothoracic Surgery evaluation. Continue the rest of medication and medical management. I would also recommend repeat troponin also. Otherwise, prognosis guarded. Further recommendations to follow. A copy of this forwarded to Dr. Collier who is the primary physician. MMODL / IJN: [id number] /
[2018-09-21] MEDS: ASPIRIN 81 MG PO SCH (21:20)
[2018-09-21] MEDS: METOPROLOL TARTRATE 25 MG TAB PO SCH (21:20)
[2018-09-22 05:37] LABS: Basophils % (A) 0 %; Eosinophils # (A) 0.2 k/uL (0-0.7); Eosinophils % (A) 2 %; HCT 37.7 % (39.0-53.0); HGB 12.9 gm/dL (13.0-17.5); Lymphocytes # (A) 1.2 k/uL (1.0-4.8); Lymphocytes % (A) 13 %; MCH 29.1 pg (25.0-35.0); MCHC 34.2 g/dL (31.0-37.0); MCV 85.2 fL (80.0-100.0); Mean Platelet Volume 7.4; Monocytes # (A) 0.7 k/uL (0-1.0); Monocytes % (A) 7 %; Neutrophils # (A) 6.9 k/uL (1.3-7.7); Neutrophils % (A) 76 %; Platelet Count 152 k/uL (150-450); RBC 4.43 m/uL (4.30-5.90); RDW 14.6 % (11.5-15.5); WBC 9.1 k/uL (3.8-10.6)
[2018-09-22 05:47] LABS: Calcium 9.3 mg/dL (8.4-10.2); Potassium 4.1 mmol/L (3.5-5.1)
--- NOTE | 2018-09-22 09:15 | P.PN ---
Subjective Progress Note Date: 09/22/18 Principal diagnosis: Acute coronary syndrome This is a 17-year-old gentleman who sees Dr. Jara in the office as an outpatient with a past medical history significant for aortic valve disease and status post TAVR in April 2018 was brought to the hospital by ambulance with a chest discomfort and the EKG showed ST segment elevation in aVR was diffuse segment depression concerning for severe underlying coronary artery disease. Subsequently the patient was taken to the cardiac quality assurance/r&d lab technician where he underwent an emergent heart catheterization which revealed mild nonobstructive coronary artery disease. Beside that he underwent aortic root angiogram which revealed 4+ aortic insufficiency. I'll follow-up with the patient today, he seems to be feeling overall better. His chest pain free. He didn't have chest pain earlier this morning. The blood pressure has improved significantly on the current medical regimen. The creatinine is worse and I'm going to DC the Lasix IV. Continue monitor the kidney function. Please note that the troponin came in to be elevated at 4. The patient did have an event. He was seen by the cardiothoracic surgical team and the plan is to do a JEZ probably a [facility]. Objective - Vital Signs Vital signs: Vital Signs Temp 98.1 F 09/22/18 04:00 Pulse 75 09/22/18 07:00 Resp 11 L 09/22/18 07:00 BP 131/39 09/22/18 07:00 Pulse Ox 95 09/22/18 07:00 Intake & Output 09/21/18 09/22/18 09/22/18 18:59 06:59 18:59 Intake Total 110 110 100 Output Total 1605 402 30 Balance -1495 -292 70 Weight 72.1 kg Intake: IV 110 10 0.9 NaCl 110 10 Oral 100 100 Output: Urine 1605 402 30 Other: Voiding Method Indwelling Catheter Indwelling Catheter ABP, PAP, CO, CI - Last Documented Arterial Blood Pressure 187/45 - Constitutional General appearance: Present: no acute distress - Respiratory Respiratory: bilateral: CTA - Cardiovascular Rhythm: regular Heart sounds: normal: S1, S2 Abnormal Heart Sounds: Present: systolic murmur - Labs CBC & Chem 7: 09/22/18 05:13 09/22/18 05:13 Labs: Abnormal Lab Results - Last 24 Hours (Table) 09/21/18 09/22/18 09/22/18 Range/Units 14:38 05:13 05:13 Hgb 12.9 L (13.0-17.5) gm/dL Hct 37.7 L (39.0-53.0) % BUN 37 H (9-20) mg/dL Creatinine 1.52 H (0.66-1.25) mg/dL Glucose 109 H (74-99) mg/dL Troponin I 4.480 H* (0.000-0.034) ng/mL Assessment and Plan Assessment: Assessment #1 hypertension emergency #2 severe aortic insufficiency #3 status post TAVR recently #4 mild nonobstructive coronary artery disease Plan #1 follow-up on the echocardiogram #2 continue the current medical regimen #3 DC Lasix IV #4 monitor the kidney function #5 follow-up with the patient
[2018-09-22] MEDS: ATORVASTATIN 10 MG TAB PO SCH (09:47)
[2018-09-22] MEDS: LISINOPRIL 10 MG TAB PO SCH (09:47)
[2018-09-22] MEDS: PANTOPRAZOLE 40 MG TABLET PO SCH (09:47)
[2018-09-22] MEDS: SODIUM CHLORIDE 0.9% 1,000 ML IV SCH ×2 (16:20→22:03)
--- NOTE | 2018-09-22 16:39 | P.PN ---
Subjective Progress Note Date: 09/22/18 Principal diagnosis: Aortic valve insufficiency status post transcatheter aortic valve replacement in April 2018, nonobstructive coronary artery disease, GERD, history of hypertens ion, and hyperlipidemia. The patient is sitting up to the bedside chair in the intensive care unit. He is no acute distress. Two have his daughters are at his bedside. Currently denies any complaints of pain although states he does have some shortness of breath with activity. Oxygen saturation are 97% on room air. The patient and his daughters present at bedside and have questions regarding his aortic valve insufficiency and her questions were answered to the best my ability. Patient is hemodynamically stable and is currently on no inotropic or pressor support. Objective - Vital Signs Vital signs: Vital Signs Temp 98 F 09/22/18 12:00 Pulse 83 09/22/18 15:00 Resp 14 09/22/18 15:00 BP 117/36 09/22/18 15:00 Pulse Ox 97 09/22/18 15:00 Intake & Output 09/21/18 09/22/18 09/22/18 18:59 06:59 18:59 Intake Total 110 110 900 Output Total 1605 402 130 Balance -1495 -292 770 Weight 72.1 kg Intake: IV 110 10 0.9 NaCl 110 10 Oral 100 900 Output: Urine 1605 402 130 Other: Voiding Method Indwelling Catheter Indwelling Catheter Indwelling Catheter ABP, PAP, CO, CI - Last Documented Arterial Blood Pressure 187/45 - Constitutional General appearance: Present: cooperative, no acute distress - Respiratory Details: Lungs sounds are essentially clear throughout. Respirations are symmetrical and nonlabored. Oxygen saturation 97% on room air. - Cardiovascular Details: Regular rhythm and rate. S1 and S2 present, negative for S3 or gallop. Systolic murmur 3/6 present and heard best to his right sternal border. No edema present. Bedside telemetry showing normal sinus rhythm heart rate 83. - Gastrointestinal Gastrointestinal Comment(s): Abdomen soft, nontender and nondistended. Active bowel sounds present in all 4 abdominal quadrants. No guarding or rigidity. No organomegaly. - Genitourinary Genitourinary Comment(s): Ayala catheter for accurate I&O. Draining clear hussein urine. - Integumentary Integumentary Comment(s): Skin is warm and dry. No clubbing or cyanosis is present. No rash or abnormal pigmentation is present. - Neurologic Neurologic: Present: CNII-XII intact - Musculoskeletal Musculoskeletal: Present: gait normal, strength equal bilaterally - Psychiatric Psychiatric: Present: A&O x's 3, appropriate affect, intact judgment & insight - Allied health notes Allied health notes reviewed: nursing - Labs CBC & Chem 7: 09/22/18 05:13 09/22/18 05:13 Labs: Abnormal Lab Results - Last 24 Hours (Table) 09/22/18 09/22/18 Range/Units 05:13 05:13 Hgb 12.9 L (13.0-17.5) gm/dL Hct 37.7 L (39.0-53.0) % BUN 37 H (9-20) mg/dL Creatinine 1.52 H (0.66-1.25) mg/dL Glucose 109 H (74-99) mg/dL Assessment and Plan Assessment: 1. Aortic valve insufficiency with history of aortic stenosis, status post TAVR in April 2018 2. Nonobstructive coronary artery disease 3. History of hypertension with hypertensive emergency on admission 4. Hyperlipidemia 5. GERD Plan: 1. Dr. Estrada met with the patient and his daughters present at bedside. Dr. Estrada spoke at length with the patient regarding his aortic valve insufficiency. Risks and benefits of valve on valve with TAVR procedure were discussed along with risks and benefits of open aortic valve replacement with TAVR explant. The patient's wishes are to proceed with an open aortic valve replacement with TAVR explant and he will be scheduled for an elective surgery next , 09/29/2018. Once his preoperative testing has been obtained a STS risk score will be calculated and discussed with the patient by Dr. Estrada. 2. Per the cardiothoracic surgery standpoint the patient can be discharged home and brought back on an elective basis for surgery. 3. Continue to optimize medical management, continue aspirin, statin, LUCAS inhibitor and beta yaneth. 4. Cardiology management recommendations per [facility]. 5. Preoperative teaching and preoperative testing initiated. 6. Encourage use of his incentive spirometry every hour while awake. 7. We will obtain a 5 m walk test. Cardiac rehab consulted. 8. More recommendations to follow based on patient's clinical course. Time with Patient: Greater than 30
--- NOTE | 2018-09-22 17:14 | US ---
EXAMINATION TYPE: US carotid duplex BILAT DATE OF EXAM: 09/22/2018 COMPARISON: NONE CLINICAL HISTORY: pre op cardiac surgery. Cardiac valve leakage per patient history. EXAM MEASUREMENTS: RIGHT: Peak Systolic Velocity (PSV) cm/sec ----- Right CCA: 106.0 ----- Right ICA: 120.5 distally ----- Right ECA: 210.7 proximaly ICA/CCA ratio: 1.1 RIGHT: End Diastole cm/sec ----- Right CCA: 0.0 ----- Right ICA: 18.7 ----- Right ECA: 26.2 LEFT: Peak Systolic Velocity (PSV) cm/sec ----- Left CCA: 107.6 ----- Left ICA: 109.7 ----- Left ECA: 141.7 ICA/CCA ratio: 1.0 LEFT: End Diastole cm/sec ----- Left CCA: 8.7 ----- Left ICA: 6.3 ----- Left ECA: 19.9 VERTEBRALS (direction of flow): Right Vertebral: Antegrade with elevated PSV proximally and mid to distally decreased PSV. Left Vertebral: Antegrade Rhythm: Arrhythmia Irregular calcified plaque is noted at bilateral ECA with abnormally elevated PSV in proximal bilater al ECA. Mild to moderate mixed wall plaque is noted in bilateral ICA, but PSV is wnl bilaterally. IMPRESSION: There is antegrade flow in the vertebral arteries. Images and measurements suggest up to 50% stenosis in both internal carotid arteries. There is estima clare 50-70% stenosis in both common carotid arteries which show elevated velocity. Criteria for Assigning % of Stenosis / Diameter reduction (Estimation based on the indirect measurements of the internal carotid artery velocities (ICA PSV). 1. Normal (no stenosis)=ICA PSV < 125 cm/s: ratio < 2.0: ICA EDV<40 cm/s. 2. Less than 50% stenosis=ICA PSV < 125 cm/s: ratio < 2.0: ICA EDV<40 cm/s. 3. 50 to 69% stenosis=ICA PSV of 125 to 230 cm/s: ration 2.0 ? 4.0: ICA EDV 40-100 cm/s. 4. Greater than 70% stenosis to near occlusion= ICA PSV > 230 cm/s: ratio > 4.0: ICA EDV > 100 cm/s. 5. Near occlusion= ICA PSV velocities may be low or undetectable: variable ratio and ICA EDV. 6. Total occlusion=unable to detect flow.
--- NOTE | 2018-09-22 18:00 | PN ---
PROGRESS NOTE DATE OF SERVICE: 09/22/2018 This 78-year-old gentleman who was admitted with chest pain had a cardiac catheterization showed intermediate coronary artery disease. Patient also had moderate to severe aortic regurgitation also. Patient previously had aortic replacement porcine valve by Dr. Estrada. Otherwise, the troponins elevated up to 4.48 indicating acute non- ST elevation myocardial infarction. Creatinine is also elevated at 1.52. Patient being closely monitored in ICU. PAST MEDICAL HISTORY: Reviewed. REVIEW OF SYSTEMS: CARDIOVASCULAR as mentioned earlier. RESPIRATORY: As mentioned earlier. GI: No nausea or vomiting. : No dysuria. CENTRAL NERVOUS SYSTEM: No numbness or weakness. CURRENT MEDICATIONS: Reviewed and include: 1. Aspirin 160 mg daily. 2. Lipitor 10 mg daily. 3. Apresoline 10 mg IV q.4 p.r.n. 4. Zestril 30 mg daily. 5. Lopressor 25 mg q.h.s. 6. Narcan 0.2 q.2h. 7. Nitrostat 0.4 sublingual p.r.n. 8. Protonix 40 mg p.o. daily. PHYSICAL EXAM: Patient is alert and oriented times three. Pulse 99, blood pressure 127/45, respiration 18, temperature 98 degrees, pulse ox 94% on room air. HEENT: Conjunctivae normal. NECK: No jugular venous distention. CARDIOVASCULAR: S1, S2 muffled. Ejection systolic murmur and early diastolic murmur also present. RESPIRATORY: Breath sounds diminished in the bases. Scattered rhonchi and crackles. ABDOMEN: Soft, nontender. No mass palpable. LEGS: No edema. No swelling. NERVOUS SYSTEM: No focal deficits. LABS: WBC 9.1, hemoglobin 12.9, and creatinine is 1.52. ASSESSMENT: 1. Chest pain possible acute non ST-segment elevation myocardial infarction status post cardiac catheterization with intermediate coronary artery disease. 2. Troponin 4.480. 3. Acute renal failure possibly contrast induced. 4. Moderate to severe aortic regurgitation. 5. History of aortic stenosis and bioprosthetic aortic valve. 6. Anemia, normocytic anemia of chronic disease. 7. History of coronary artery disease. 8. History of gastroesophageal reflux disease. 9. Hypertension. 10.History of hyperlipidemia. 11.Degenerative joint disease. 12.History of prostate disorder. 13.History of prostate cancer. 14.History of psoriasis. 15.History of anxiety and depression. RECOMMENDATIONS AND DISCUSSION: This 78-year-old gentleman who presented with multiple medical issues, we will monitor the patient closely, continue the current management and symptomatic treatment. I would recommend IV fluids. Repeat labs. Cardiology/Cardiothoracic evaluation. Guarded prognosis because of the multiple complex medical issues. Further recommendations to follow. See order for details. MMODL / IJN: [id number] /
--- NOTE | 2018-09-22 20:17 | ECHOF ---
Referral Reason:AVR MEASUREMENTS -------- HEIGHT: 182.9 cm WEIGHT: 71.2 kg BP: 152/46 IVSd: 1.3 cm (0.6 - 1.1) LVIDd: 4.7 cm (3.9 - 5.3) LVPWd: 1.3 cm (0.6 - 1.1) IVSs: 1.4 cm LVIDs: 3.5 cm LVPWs: 1.1 cm LA Diam: 3.7 cm (2.7 - 3.8) RVIDd: 4.3 cm (< 3.3) Ao Diam: 2.9 cm (2.0 - 3.7) LA Diam: 3.8 cm (2.7 - 3.8) MV E Tim: 0.85 m/s MV DecT: 313 ms MV A Tim: 0.99 m/s MV E/A Ratio: 0.85 AV maxP.08 mmHg AV meanP.80 mmHg AR PHT: 224 ms RAP: 5.00 mmHg RVSP: 20.86 mmHg FINDINGS -------- Undetermined rhythm. This was a technically good study. The left ventricular size is normal. Left ventricular wall thickness is normal. Overall left vent ricular systolic function is normal with, an EF between 55 - 60 %. The right ventricle is normal in size. The left atrial size is normal. The right atrial size is normal. Peak/mean gradient across the Aortic Valve is 23.08mmHg / 10.80mmHg. There is severe regurgitation of the bioprosthetic aortic valve. Mild mitral annular calcification present. Mild mitral regurgitation is present. Mild tricuspid regurgitation present. There is no evidence of pulmonary hypertension. The right v entricular systolic pressure, as measured by Doppler, is 20.86mmHg. The pulmonic valve was not well visualized. The aortic root size is normal. There is no pericardial effusion. CONCLUSIONS -------- 1. This was a technically good study. 2. The left ventricular size is normal. 3. Left ventricular wall thickness is normal. 4. Overall left ventricular systolic function is normal with, an EF between 55 - 60 %. 5. The right ventricle is normal in size. 6. The left atrial size is normal. 7. The right atrial size is normal. 8. Peak/mean gradient across the Aortic Valve is 23.08mmHg / 10.80mmHg. 9. There is severe regurgitation of the bioprosthetic aortic valve. 10. Mild mitral annular calcification present. 11. Mild mitral regurgitation is present. 12. Mild tricuspid regurgitation present. 13. There is no evidence of pulmonary hypertension. 14. The right ventricular systolic pressure, as measured by Doppler, is 20.86mmHg. 15. The pulmonic valve was not well visualized. 16. The aortic root size is normal. 17. There is no pericardial effusion. AGRICULTURAL SYSTEMS SPECIALIST: Avani Alvarado RDCS
[2018-09-22] MEDS: HEPARIN SODIUM,PORCINE 5,000 UNIT/ML 1 ML VIAL SQ SCH (20:49)
[2018-09-22] MEDS: METOPROLOL TARTRATE 25 MG TAB PO SCH (20:49)
[2018-09-22] MEDS: ASPIRIN 81 MG PO SCH (20:49)
[2018-09-22 23:05] LABS: Appearance,Urine Cloudy (Clear); Bilirubin,Urine Negative (Negative); Blood,Urine Moderate (Negative); Color,Urine Yellow; Glucose,Urine (UA) Negative (Negative); Hyaline Casts,Urine 1 /lpf (0-2); Ketones,Urine Negative (Negative); Leukocyte Esterase,Urine Trace (Negative); Mucus,Urine Rare /hpf; Nitrite,Urine Negative (Negative); PH, Urine 5.5 (5.0-8.0); Protein,Urine 1+ (Negative); RBC,Urine >182 /hpf (0-5); Squamous Epithelial Cell,Urine <1 /hpf (0-4); Urobilinogen,Urine <2.0 mg/dL (<2.0); WBC,Urine 15 /hpf (0-5)
[2018-09-23 05:12] LABS: Basophils % (A) 0 %; Eosinophils # (A) 0.2 k/uL (0-0.7); Eosinophils % (A) 3 %; HCT 35.5 % (39.0-53.0); Lymphocytes % (A) 13 %; MCH 29.2 pg (25.0-35.0); MCHC 33.7 g/dL (31.0-37.0); MCV 86.5 fL (80.0-100.0); Mean Platelet Volume 7.1; Monocytes # (A) 0.6 k/uL (0-1.0); Monocytes % (A) 8 %; Neutrophils # (A) 5.9 k/uL (1.3-7.7); Neutrophils % (A) 76 %; Platelet Count 135 k/uL (150-450); RDW 14.6 % (11.5-15.5); WBC 7.8 k/uL (3.8-10.6)
[2018-09-23 05:20] LABS: INR 0.9 (<1.2); Prothrombin Time 10.2 sec (9.0-12.0)
[2018-09-23 05:22] LABS: Albumin 3.3 g/dL (3.5-5.0); Magnesium 1.8 mg/dL (1.6-2.3); Potassium 4.5 mmol/L (3.5-5.1); Total Bilirubin 0.7 mg/dL (0.2-1.3); Total Protein 5.7 g/dL (6.3-8.2)
--- NOTE | 2018-09-23 07:38 | P.PN ---
Subjective Progress Note Date: 09/23/18 Principal diagnosis: Acute coronary syndrome This is a 17-year-old gentleman who sees Dr. Jara in the office as an outpatient with a past medical history significant for aortic valve disease and status post TAVR in April 2018 was brought to the hospital by ambulance with a chest discomfort and the EKG showed ST segment elevation in aVR was diffuse segment depression concerning for severe underlying coronary artery disease. Subsequently the patient was taken to the cardiac chemical laboratory scientist where he underwent an emergent heart catheterization which revealed mild nonobstructive coronary artery disease. Beside that he underwent aortic root angiogram which revealed 4+ aortic insufficiency. On follow-up with the patient today, September [id number], clinically the patient is doing well. Hemodynamically he still slightly hypertensive. I am going to increase the dose of lisinopril to 40 mg by mouth daily. Beside that he is going to undergo a JEZ today. He was seen yesterday by Dr. Estrada and the plan is to proceed with aortic valve replacement next week. Possibly he might be able to be discharged home. Objective - Vital Signs Vital signs: Vital Signs Temp 96.8 F L 09/23/18 04:00 Pulse 67 09/23/18 04:00 Resp 13 09/23/18 04:00 BP 157/54 09/23/18 04:00 Pulse Ox 93 L 09/23/18 04:00 Intake & Output 09/22/18 09/23/18 09/23/18 18:59 06:59 18:59 Intake Total 1125 830 Output Total 330 100 Balance 795 730 Intake: IV 225 600 0.9 NaCl 225 600 Oral 900 230 Output: Urine 330 100 Other: Voiding Method Indwelling Catheter Urinal # Voids 0 ABP, PAP, CO, CI - Last Documented Arterial Blood Pressure 187/45 - Constitutional General appearance: Present: no acute distress - Respiratory Respiratory: bilateral: CTA - Cardiovascular Rhythm: regular Heart sounds: normal: S1, S2 Abnormal Heart Sounds: Present: systolic murmur - Labs CBC & Chem 7: 09/23/18 04:42 09/23/18 04:42 Labs: Abnormal Lab Results - Last 24 Hours (Table) 09/22/18 09/23/18 09/23/18 Range/Units 21:30 04:42 04:42 RBC 4.10 L (4.30-5.90) m/uL Hgb 12.0 L (13.0-17.5) gm/dL Hct 35.5 L (39.0-53.0) % Plt Count 135 L (150-450) k/uL BUN 44 H (9-20) mg/dL Glucose 116 H (74-99) mg/dL Total Protein 5.7 L (6.3-8.2) g/dL Albumin 3.3 L (3.5-5.0) g/dL Triglycerides 177 H (<150) mg/dL LDL Cholesterol, Calc 115 H (0-99) mg/dL Urine Protein 1+ H (Negative) Urine Blood Moderate H (Negative) Ur Leukocyte Esterase Trace H (Negative) Urine RBC >182 H (0-5) /hpf Urine WBC 15 H (0-5) /hpf Urine Mucus Rare H (None) /hpf Microbiology - Last 24 Hours (Table) 09/22/18 17:00 Nasal Screen MRSA/MSSA - Preliminary Nasal Swab Assessment and Plan Assessment: Assessment #1 hypertension emergency #2 severe aortic insufficiency #3 status post TAVR recently #4 mild nonobstructive coronary artery disease Plan #1 follow-up on the echocardiogram #2 continue the current medical regimen #3 increase the dose of lisinopril #4 monitor the kidney function #5 JEZ today
[2018-09-23] MEDS ORDERED: LISINOPRIL 20 MG TAB PO SCH (09:00)
[2018-09-23 09:07] VITALS: TEMP 97.7
[2018-09-23] MEDS ORDERED: fentaNYL (PF) 50 MCG/ML 2 ML AMP ONE (09:24)
[2018-09-23] MEDS: BENZOCAINE SPRAY 1 CAN MUCOUS MEM ONE ×3 (09:40→10:39)
[2018-09-23] MEDS ORDERED: IV FLUID CONTINUATION 1,000 ML IV ONE (09:43)
--- NOTE | 2018-09-23 10:21 | P.PN ---
Subjective Progress Note Date: 09/23/18 Principal diagnosis: Aortic valve insufficiency status post transcatheter aortic valve replacement in April 2018, nonobstructive coronary artery disease, GERD, history of hypertens ion, and hyperlipidemia. The patient is sitting up to the bedside chair in the intensive care unit. He is no acute distress. One his daughters are at his bedside, discussed preoperative instructions with the patient and his daughter. Currently denies any complaints of pain although states he does have some shortness of breath with activity. Oxygen saturation are 95% on room air. Preoperative testing has been initiated. Carotid duplex study completed yesterday was his suggestive of a 50% stenosis to his bilateral internal carotid arteries. 5 m walk test was completed with the patient this morning by cardiac rehab. 5 minute walk test times are as follows: Time 1: 5.36 seconds, time 2: 5.09 seconds, time 3: 4.57 seconds. The patient is hemodynamically stable and is currently on no inotropic or pressor support. He is scheduled for a transesophageal echocardiogram today to be completed by Dr. Cornejo from [facility]. The patient is anxious to be discharged home. Bedside FEV1 was completed yesterday and demonstrated an 84% of predicted value. Objective - Vital Signs Vital signs: Vital Signs Temp 97.7 F 09/23/18 08:00 Pulse 80 09/23/18 09:00 Resp 18 09/23/18 09:47 BP 191/98 09/23/18 09:47 Pulse Ox 100 09/23/18 09:47 Intake & Output 09/22/18 09/23/18 09/23/18 18:59 06:59 18:59 Intake Total 1125 830 150 Output Total 330 100 125 Balance 795 730 25 Weight 72.1 kg Intake: IV 225 600 150 0.9 NaCl 225 600 150 Oral 900 230 Output: Urine 330 100 125 Other: Voiding Method Indwelling Catheter Urinal Urinal # Voids 0 0 ABP, PAP, CO, CI - Last Documented Arterial Blood Pressure 187/45 - Constitutional General appearance: Present: average body habitus, cooperative, no acute distress - Respiratory Details: Lungs sounds essentially clear, although diminished to his bilateral bases. Respirations are symmetrical and nonlabored. Oxygen saturation 95% on room air. Achieving 3000 mL on his incentive spirometry. - Cardiovascular Details: Regular rhythm and rate. S1 and S2 present, negative for S3, or gallop. Positive systolic murmur 3/6 red breast was right sternal border. No edema present. - Gastrointestinal Gastrointestinal Comment(s): Abdomen is soft, nontender and nondistended. Active bowel sounds present in all 4 abdominal quadrants. No guarding or rigidity. No organomegaly appreciated. - Genitourinary Genitourinary Comment(s): Voiding clear yellow urine. - Integumentary Integumentary Comment(s): Skin is warm and dry. No clubbing or cyanosis is present. No rash or abnormal pigmentation is present. - Neurologic Neurologic: Present: CNII-XII intact - Musculoskeletal Musculoskeletal: Present: gait normal, strength equal bilaterally - Psychiatric Psychiatric: Present: A&O x's 3, appropriate affect, intact judgment & insight - Allied health notes Allied health notes reviewed: nursing - Labs CBC & Chem 7: 09/23/18 04:42 09/23/18 04:42 Labs: Abnormal Lab Results - Last 24 Hours (Table) 09/22/18 09/23/18 09/23/18 Range/Units 21:30 04:42 04:42 RBC 4.10 L (4.30-5.90) m/uL Hgb 12.0 L (13.0-17.5) gm/dL Hct 35.5 L (39.0-53.0) % Plt Count 135 L (150-450) k/uL BUN 44 H (9-20) mg/dL Glucose 116 H (74-99) mg/dL Total Protein 5.7 L (6.3-8.2) g/dL Albumin 3.3 L (3.5-5.0) g/dL Triglycerides 177 H (<150) mg/dL LDL Cholesterol, Calc 115 H (0-99) mg/dL Urine Protein 1+ H (Negative) Urine Blood Moderate H (Negative) Ur Leukocyte Esterase Trace H (Negative) Urine RBC >182 H (0-5) /hpf Urine WBC 15 H (0-5) /hpf Urine Mucus Rare H (None) /hpf Microbiology - Last 24 Hours (Table) 09/22/18 17:00 Nasal Screen MRSA/MSSA - Preliminary Nasal Swab - Imaging and Cardiology Carotid duplex study results reviewed. Bedside FEV1 results reviewed. Assessment and Plan Assessment: 1. Aortic valve insufficiency with history of aortic stenosis, status post TAVR in April 2018 2. Nonobstructive coronary artery disease 3. History of hypertension with hypertensive emergency on admission 4. Hyperlipidemia 5. GERD Plan: 1. The patient is scheduled for an aortic valve replacement with TAVR explant surgery scheduled for next , 09/29/2018. 2. Per the cardiothoracic surgery standpoint the patient can be discharged home and brought back on an elective basis for surgery. 3. Continue to optimize medical management, continue aspirin, statin, LUCAS inhibitor and beta yaneth. 4. Cardiology management recommendations per [facility]. The patient is scheduled for a transesophageal echocardiogram to be completed today by Dr. Cornejo. 5. Preoperative teaching reinforced and preoperative testing is in progress. 6. Encourage use of his incentive spirometry every hour while awake. 7. 5 m walk test has been completed by cardiac rehab and documented. 8. STS risk score has been calculated and discussed with the patient by Dr. Soren Lo. 9. More recommendations to follow based on patient's clinical course. Time with Patient: Greater than 30
[2018-09-23] MEDS: MIDAZOLAM (PF) 2 MG/2 ML VIAL IV ONE ×2 (10:39→10:42)
[2018-09-23] MEDS ORDERED: fentaNYL (PF) 50 MCG/ML 2 ML AMP IV ONE (10:39)
--- NOTE | 2018-09-23 11:28 | ECHOT ---
TRANSESOPHAGEAL ECHOCARDIOGRAM DATE OF SERVICE: September 23, 2018 PERFORMING PHYSICIAN: Cameron Cornejo MD, surgical brace maker. PROCEDURE PERFORMED: Transesophageal echocardiogram. INDICATION: This is an 78-year-old gentleman who sees Dr. Jara in the office as an outpatient with history of aortic valve replacement percutaneously through TAVR who presented to the hospital with chest discomfort and ruled in for acute coronary syndrome. He was found to have severe aortic regurgitation. He was brought today to undergo a JEZ. COMPLICATION: None. LEVEL OF SEDATION: Moderate with sedation length of 15 minutes. PROCEDURE DESCRIPTION: After obtaining an informed consent, explaining the procedure, benefits, risks, complications and alternatives, the patient was brought to the transesophageal echocardiogram suite. A pulse oximetry and heart rate monitors were attached to the patient prior to the procedure. The patient's throat was sprayed using lidocaine locally. Following that, the patient was turned into left lateral position. A bite guard was placed and the patient was then sedated with the above doses of Versed and fentanyl in divided doses. Following that, the transesophageal echocardiogram probe was advanced through the bite guard into the mid esophagus where 2-D echocardiogram images as well as color Doppler images of various cardiac structures were obtained. We evaluated the interatrial septum using 2-D echocardiogram, color Doppler, and contrast study. The procedure was completed. There were no complications. FINDINGS: The left ventricular dimension and systolic function appeared to be within normal limits. The ejection fraction appeared to be in the range of 60% to 65%. The right ventricle appeared to be mildly dilated. The left atrium appeared to be mildly dilated as well as the right atrium. The mitral valve appeared to be intact with mild MR only. The aortic valve is bioprosthetic valve with evidence of aortic regurgitation, seems to be severe and seems to be valvular and perivalvular regurgitation. There was moderate tricuspid regurgitation seen. No evidence of pericardial effusion. CONCLUSION: 1. Normal left ventricular dimension and systolic function. 2. Mildly dilated right ventricle with normal function. 3. Mild biatrial enlargement. 4. Intact interatrial septum. 5. Normal left atrial appendage. 6. Bioprosthetic aortic valve with evidence of severe aortic regurgitation with regurgitation seems to be valvular and perivalvular. 7. Normal mitral valve leaflets with mild mitral regurgitation only. 8. Moderate tricuspid regurgitation. 9. No evidence of pericardial effusion. MMODL / IJN: [id number] /
[2018-09-23 12:46] LABS: Hemoglobin A1C 6.5 % (4.0-6.0)
--- NOTE | 2018-09-23 14:40 | P.CNPUL ---
History of Present Illness Consult date: 09/23/18 Requesting physician: Marsha Lunsford Reason for consult: other (Critical care management) Chief complaint: Chest pain History of present illness: This is a very pleasant 78-year-old gentleman who follows with Dr. Collier as his primary care physician. He has a history of hypertension, hyperlipidemia, gastroesophageal reflux disease, prostate cancer status post radiation, anxiety/depression. He has a remote history of smoking. No diagnosed pulmonary disease. No home oxygen. No home inhalers. He had presented here with complaints of chest pain and shortness of breath. He has a previous history of transcutaneous aortic valve replacement earlier this year. He was seen and evaluated by cardiology and perform a right and left heart catheterization and the patient was found to have intermediate nonobstructive coronary artery disease. He was found to have 4+ aortic insufficiency. The plan is for surgical aortic valve replacement next week. He is currently seen resting quite comfortably in the intensive care unit. Awake and alert in no acute distress. No chest pain, palpitations lightheadedness or dizziness. No shortness of breath, cough or congestion. FEV1 value found to be 84% of predicted. White count 7.8. Hemoglobin 12.0. Creatinine 1.25. Lab 0.9 normal saline at 75 ML's per hour. Review of Systems REVIEW OF SYSTEMS: CONSTITUTIONAL: Denies any recent significant weight loss or weight gain. EYES: Denies change in vision. EARS, NOSE, MOUTH, THROAT: Denies headaches, denies sore throat. CARDIOVASCULAR: Denies chest pain, palpitations or syncopal episodes. RESPIRATORY: Denies shortness of breath, cough, congestion or hemoptysis. GASTROINTESTINAL: Denies change in appetite, denies abdominal pain GENITOURINARY: Denies hematuria, denies infections. MUSKULOSKELETAL: Denies pain, denies swelling. INTEGUMENTARY: Denies rash, denies eczema. NEUROLOGICAL: Denies recent memory loss, no recent seizure activity. PSYCHIATRIC: Denies anxiety, denies depression. HEMATOLOGIC/LYMPHATIC: Denies anemia, denies enlarged lymph nodes. Past Medical History Past Medical History: Coronary Artery Disease (CAD), Chest Pain / Angina, GERD/Reflux, Hyperlipidemia, Hypertension, Osteoarthritis (OA), Prostate Disorder, Skin Disorder Additional Past Medical History / Comment(s): Episodes of dizziness and presyncope. Prostate CA dx 2014 approx-received high definition radiation 1 treatment, currently receiving hormone injections. Psoriasis History of Any Multi-Drug Resistant Organisms: None Reported Past Surgical History: Cardiac Valve Replacement, Heart Catheterization, Orthopedic Surgery, Tonsillectomy Additional Past Surgical History / Comment(s): 12/27/17 JEZ. BILATERAL shoulders. URETHRA REPAIR. TAVR 04/2018 Past Anesthesia/Blood Transfusion Reactions: No Reported Reaction Past Psychological History: Anxiety, Depression Smoking Status: Former smoker Past Alcohol Use History: Occasional Additional Past Alcohol Use History / Comment(s): quit smoking , smoked socially <1 pp week,started smoking at age 16 Past Drug Use History: None Reported - Past Family History Mother Family Medical History: No Reported History Medications and Allergies Home Medications Medication Instructions Recorded Confirmed Type Lisinopril [Zestril] 20 mg PO DAILY 07/27/13 09/20/18 History Simvastatin [Zocor] 20 mg PO DAILY 07/27/13 09/20/18 History Omeprazole 40 mg PO DAILY 08/23/16 09/20/18 History Aspirin [Adult Low Dose Aspirin EC] 162 mg PO HS 11/09/16 09/20/18 History Metoprolol Tartrate 25 mg PO HS 09/20/18 09/20/18 History Allergies Allergy/AdvReac Type Severity Reaction Status Date / Time amlodipine [From [facility]] Allergy Unknown Verified 09/20/18 22:54 Physical Exam Vitals: Vital Signs Temp Pulse Pulse Resp BP BP Pulse Ox 09/23/18 11:30 68 16 124/45 97 09/23/18 11:15 77 14 136/47 97 09/23/18 10:51 82 18 162/73 96 09/23/18 10:45 77 18 145/62 97 09/23/18 10:43 74 18 123/59 96 09/23/18 10:37 75 18 136/70 97 09/23/18 10:19 78 18 153/74 98 09/23/18 09:47 18 191/98 100 09/23/18 09:00 80 14 147/44 95 09/23/18 08:00 97.7 F 76 14 153/94 94 L 09/23/18 07:00 69 14 152/49 94 L 09/23/18 06:00 64 12 131/41 96 09/23/18 05:00 62 14 149/41 97 09/23/18 04:00 96.8 F L 67 13 157/54 93 L 09/23/18 03:00 62 15 117/43 95 09/23/18 02:00 71 18 128/39 85 L 09/23/18 01:00 78 20 182/57 92 L 09/23/18 00:00 98.6 F 67 19 121/40 96 09/22/18 23:05 68 17 121/40 98 09/22/18 23:00 68 15 121/40 93 L 09/22/18 22:00 73 9 L 97 09/22/18 21:00 80 20 137/51 95 09/22/18 20:00 97.8 F 85 20 149/52 96 09/22/18 19:00 89 16 153/47 96 09/22/18 18:00 95 16 145/49 95 09/22/18 17:00 83 10 L 147/48 96 09/22/18 16:00 97.7 F 79 9 L 137/46 94 L 09/22/18 15:00 83 14 117/36 97 Intake and Output 09/22/18 09/23/18 09/23/18 22:59 06:59 14:59 Intake Total 755 300 400 Output Total 265 125 Balance 490 300 275 Intake: IV 525 300 400 0.9 NaCl 525 300 300 Oral 230 Output: Urine 265 125 Other: Voiding Method Urinal Urinal Urinal # Voids 0 0 Weight 72.1 kg GENERAL EXAM: A pleasant 78-year-old gentleman. Alert, comfortable in no apparent distress. HEAD: Normocephalic. EYES: Normal reaction of pupils, equal size. NOSE: Clear with pink turbinates. THROAT: No erythema or exudates. NECK: No masses, no JVD. CHEST: No chest wall deformity. LUNGS: Equal air entry with no crackles, wheeze, rhonchi or dullness. CVS: S1 and S2 normal with an audible murmur, regular rhythm. ABDOMEN: No hepatosplenomegaly, normal bowel sounds, no guarding or rigidity. SPINE: No scoliosis or deformity SKIN: No rashes CENTRAL NERVOUS SYSTEM: No focal deficits, tone is normal in all 4 extremities. EXTREMITIES: There is no peripheral edema. No clubbing, no cyanosis. Peripheral pulses are intact. Results - Laboratory Findings CBC and BMP: 09/23/18 04:42 09/23/18 04:42 PT/INR, D-dimer PT 10.2 sec (9.0-12.0) 09/23/18 04:42 INR 0.9 (<1.2) 09/23/18 04:42 Abnormal lab findings: Abnormal Labs 09/20/18 09/20/18 09/21/18 22:53 22:53 01:19 RBC 4.21 L Hgb 12.1 L Hct 35.6 L Plt Count Chloride 109 H BUN 26 H Creatinine Glucose 137 H POC Glucose (mg/dL) 129 H Hemoglobin A1c Troponin I Total Protein 6.1 L Albumin Triglycerides LDL Cholesterol, Calc Urine Protein Urine Blood Ur Leukocyte Esterase Urine RBC Urine WBC Urine Mucus Crossmatch 09/21/18 09/21/18 09/21/18 05:05 05:05 14:38 RBC 4.05 L Hgb 11.8 L Hct 34.6 L Plt Count Chloride 109 H BUN 26 H Creatinine Glucose 126 H POC Glucose (mg/dL) Hemoglobin A1c Troponin I 4.480 H* Total Protein Albumin Triglycerides LDL Cholesterol, Calc Urine Protein Urine Blood Ur Leukocyte Esterase Urine RBC Urine WBC Urine Mucus Crossmatch 09/22/18 09/22/18 09/22/18 05:13 05:13 21:30 RBC Hgb 12.9 L Hct 37.7 L Plt Count Chloride BUN 37 H Creatinine 1.52 H Glucose 109 H POC Glucose (mg/dL) Hemoglobin A1c Troponin I Total Protein Albumin Triglycerides LDL Cholesterol, Calc Urine Protein 1+ H Urine Blood Moderate H Ur Leukocyte Esterase Trace H Urine RBC >182 H Urine WBC 15 H Urine Mucus Rare H Crossmatch 09/23/18 09/23/18 09/23/18 04:42 04:42 04:42 RBC 4.10 L Hgb 12.0 L Hct 35.5 L Plt Count 135 L Chloride BUN Creatinine Glucose POC Glucose (mg/dL) Hemoglobin A1c 6.5 H Troponin I Total Protein Albumin Triglycerides LDL Cholesterol, Calc Urine Protein Urine Blood Ur Leukocyte Esterase Urine RBC Urine WBC Urine Mucus Crossmatch See Detail 09/23/18 04:42 RBC Hgb Hct Plt Count Chloride BUN 44 H Creatinine Glucose 116 H POC Glucose (mg/dL) Hemoglobin A1c Troponin I Total Protein 5.7 L Albumin 3.3 L Triglycerides 177 H LDL Cholesterol, Calc 115 H Urine Protein Urine Blood Ur Leukocyte Esterase Urine RBC Urine WBC Urine Mucus Crossmatch - Diagnostic Findings Chest x-ray: image reviewed (No acute cardiopulmonary process) Assessment and Plan Assessment: Impression: #1 Chest pain in a patient found to have nonobstructive coronary artery disease. #2 4+ aortic insufficiency in a patient with previous transcutaneous aortic valve replacement in April 2018. #3 Hypertension. #4 Hyperlipidemia. #5 History of prostate cancer status post radiation. #6 Gastroesophageal reflux disease. #7 Gastroesophageal reflux disease. #8 History of anxiety/depression. #9 Remote history of chronic tobacco dependence. FEV1 value 84% of predicted. Plan: The patient was seen and evaluated by Dr. Camara. Chest x-ray and labs reviewed. FEV1 reviewed. Remote history of smoking. The patient should do well from the pulmonary standpoint. His been educated regarding the UC incentive spirometer and cough and deep breathing exercises. Plan is for aortic valve replacement next week with Dr. Estrada. We'll follow along in the postoperative period. I, the cosigning physician, performed a history & physical examination of the patient. Lungs sounds are clear. Maintaining good O2 saturations in the 90s on room air. I discussed the assessment and plan of care with my nurse practitioner, Brit Verduzco. I attest to the above consultation as dictated by her.
[2018-09-23] MEDS: ATORVASTATIN 10 MG TAB PO SCH (15:25)
[2018-09-23] MEDS: PANTOPRAZOLE 40 MG TABLET PO SCH (15:45)
[2018-09-23] MEDS: HEPARIN SODIUM,PORCINE 5,000 UNIT/ML 1 ML VIAL SQ SCH (15:45)
[2018-09-23 16:08] VITALS: RESP 14
[2018-09-23 16:42] VITALS: BP 136/43; PULSE 80
--- NOTE | 2018-09-24 04:05 | P.DS ---
Providers Date of admission: 09/21/18 00:05 Expected date of discharge: 09/23/18 Attending physician: Marsha Lunsford Consults: 09/21/18 05:56 Consult Physician Routine Consulting Provider: [facility] Consult Reason/Comments: Aortic Valve Replacement Do you want consulting provider notified?: Yes, Notify in am 09/21/18 07:00 Consult Physician Routine Consulting Provider: [facility] Consult Reason/Comments: Chest pain Do you want consulting provider notified?: Already Contacted 09/23/18 10:24 Consult Physician Routine Consulting Provider: Jarrett Camara Consult Reason/Comments: Pulmonary clearance Do you want consulting provider notified?: Yes [facility] Course: Final Diagnosis Chest pain possible acute non ST segment elevation myocardial infarction s/p cardiac catheterization with intermediate CAD Elevated troponins 4.480 Acute renal failure possibly contrast induced Moderate to severe aortic regurgitation History of aortic stenosis and bioprosthetic aortic valve Anemia, normocytic anemia of chronic disease History of CAD History of GERD History of DJD Hypertension History of hyperlipidemia History of prostate disorder History of prostate cancer History of psoriasis History of anxiety and depression Discharge disposition This patient is being discharged in stable condition with guarded prognosis to home and is to follow-up this for surgery. History of present illness This is a 78 year old male that was admitted with chest pain and had a cardiac catheterization showing intermediate coronary artery disease. From cardiology and cardiothoracic's perspective patient is stable for discharge home and will be scheduled for surgery on 09/29/2018. Patient denies any recent chest pain, shortness of breath, or palpitations at this time. Patient denies any abdominal discomfort, nausea or vomiting at this time. Patient is afebrile. Patient is currently stable with a guarded prognosis. Daughter is at the bedside and verbalizes understanding of the treatment plan and agrees with the plan. Discussed with the patient at length about continuing to use the incentive spirometer while awake. Patient also instructed to take it easy at home and avoid salty foods or stress for the upcoming procedure this week. On exam vitals are stable. Blood pressure is 124/47, pulse is 65, resp are 14, oxygen saturation is 96% on room air and temp is normal. Cardio S1 and S2 are muffled. Respiratory is clear to auscultation. Abdomen is soft, non-tender. Nervous system shows no focal deficits and gait is steady. Please refer to medication reconciliation sheet for a list of medications. Patient Condition at Discharge: Critical Plan - Discharge Summary Discharge Rx Participant: No New Discharge Prescriptions: Continue Simvastatin [Zocor] 20 mg PO DAILY Lisinopril [Zestril] 20 mg PO DAILY Omeprazole 40 mg PO DAILY Aspirin [Adult Low Dose Aspirin EC] 162 mg PO HS Metoprolol Tartrate 25 mg PO HS Discharge Medication List Lisinopril [Zestril] 20 mg PO DAILY 07/27/13 [History] Simvastatin [Zocor] 20 mg PO DAILY 07/27/13 [History] Omeprazole 40 mg PO DAILY 08/23/16 [History] Aspirin [Adult Low Dose Aspirin EC] 162 mg PO HS 11/09/16 [History] Metoprolol Tartrate 25 mg PO HS 09/20/18 [History] Follow up Appointment(s)/Referral(s): Daquan Collier DO [Primary Care Provider] - 09/26/18 10:20 am Patient Instructions/Handouts: Heart Attack (DC) Activity/Diet/Wound Care/Special Instructions: Follow a heart healthy diet. Take it easy for the next few days. DO NOT mow the lawn. Pre-admission testing will contact you for arrangements for surgery on 09-29-18. Discharge Disposition: HOME SELF-CARE
--- NOTE | 2018-09-24 09:20 | DS ---
DISCHARGE SUMMARY . DATE OF SERVICE: 09/23/2018. FINAL DIAGNOSES: 1. Chest pain possible acute non-ST segment elevation myocardial infarction status post cardiac catheterization, intermediate coronary artery disease. 2. Troponin 4.480. 3. Severe aortic regurgitation, possibly valvular and perivalvular with bioprosthetic aortic valve. 4. Moderate tricuspid regurgitation. 5. Acute renal failure possibly contrast induced. 6. History of aortic stenosis and bioprosthetic aortic valve. 7. Anemia, normocytic anemia of chronic disease. 8. History of coronary artery disease. 9. History of gastroesophageal reflux disease. 10.Hypertension. 11.History of hyperlipidemia. 12.History of degenerative joint disease. 13.History of prostate disorder, cancer. 14.History of psoriasis. 15.History of anxiety/depression. DISCHARGE DISPOSITION: The patient will be discharged in stable condition with guarded prognosis. Total time taken 35 minutes. Discharge cleared by multiple consultants. The patient is supposed to come back for surgery aortic valve prosthesis in the next week. HISTORY OF PRESENT ILLNESS: This 78-year-old gentleman with past medical history of multiple medical problems as mentioned earlier, being followed by Dr. Daquan Collier in the outpatient setting was admitted with chest pain. The patient underwent a cardiac cath showed intermediate coronary disease. The patient being medically treated. However, the patient also was found to have severe aortic regurgitation, which was confirmed with a JEZ which was thought to be both valvar and perivalvular and cardiothoracic surgery was consulted and underwent definitive valve replacement at this time. The patient will be discharged and the patient will be coming back for the surgery otherwise. On exam, vitals are stable. CARDIOVASCULAR: S1, S2. Ejection systolic murmur and early diastolic murmur also present. NERVOUS SYSTEM: No focal deficits. DISCHARGE ADVICE AND MEDICATIONS: 1. Diet is cardiac diet. 2. Activity limited until followup. 3. Follow up with Dr. Collier in 2-3 days. 4. Follow up with as mentioned earlier. DISCHARGE MEDICATIONS: 1. Ecotrin 160 mg q.h.s. 2. Metoprolol 25 mg q.h.s. 3. Omeprazole 40 mg p.o. daily. 4. Zestril 20 mg p.o. daily. 5. Zocor 20 mg p.o. daily. Please. Once again, the patient is being discharged in stable condition with guarded prognosis. The rest of the recommendations per Cardiothoracic surgery. Total time taken 35 minutes. TITUS / DARCY: [id number] / [id number]
== END 2018-09-23 16:49 | disposition home or self-care (01) | DRG 281 ==
LOC: EC 22:38 → 2SICU 09-21 00:05
PROVIDERS: ADMIT Hospitalist; ATTEND Hospitalist
PROC: 4A023N7 Measurement of Cardiac Sampling and Pressure, Left Heart, Percutaneous Approach (ICD-10-PCS; principal; 2018-09-21)
PROC: B2111ZZ Fluoroscopy of Multiple Coronary Arteries using Low Osmolar Contrast (ICD-10-PCS; 2018-09-21)
PROC: B3101ZZ Fluoroscopy of Thoracic Aorta using Low Osmolar Contrast (ICD-10-PCS; 2018-09-21)
PROC: B246ZZ4 Ultrasonography of Right and Left Heart, Transesophageal (ICD-10-PCS; 2018-09-23)
DX: I21.4 Non-ST elevation (NSTEMI) myocardial infarction (principal); I16.1 Hypertensive emergency; N17.9 Acute kidney failure, unspecified; I08.3 Combined rheumatic disorders of mitral, aortic and tricuspid valves; D63.8 Anemia in other chronic diseases classified elsewhere; N14.1 Nephropathy induced by other drugs, medicaments and biological substances; T50.8X5A Adverse effect of diagnostic agents, initial encounter; I25.10 Atherosclerotic heart disease of native coronary artery without angina pectoris; K21.9 Gastro-esophageal reflux disease without esophagitis; E78.5 Hyperlipidemia, unspecified; I10 Essential (primary) hypertension; M19.90 Unspecified osteoarthritis, unspecified site; N42.9 Disorder of prostate, unspecified; L40.9 Psoriasis, unspecified; H91.90 Unspecified hearing loss, unspecified ear; Z79.82 Long term (current) use of aspirin; Z79.899 Other long term (current) drug therapy; Z87.891 Personal history of nicotine dependence; Z85.46 Personal history of malignant neoplasm of prostate; Z95.2 Presence of prosthetic heart valve; Z92.3 Personal history of irradiation; Z98.890 Other specified postprocedural states; Z86.59 Personal history of other mental and behavioral disorders; Z88.8 Allergy status to other drugs, medicaments and biological substances; Y92.230 Patient room in hospital as the place of occurrence of the external cause
CPT/HCPCS: 36415; 71046; 80048; 80053; 80061; 80074; 81001; 83036; 83735; 84443; 84484; 85025; 85027; 85610; 85730; 86850; 86900; 86901; 86920; 87070; 87086; 93005; 93306; 93312; 93320; 93325; 93458; 93880; 94150; 96374; 99285

== ENCOUNTER → 2018-09-23 | Outpatient (CLI) | payer MEDICARE | END | disposition home or self-care (01) | LOC: LABWHC1 10:25 | PROVIDERS: ATTEND Thoracic Surgery (Cardiothoracic Vascular Surgery) | DX: Z01.812 Encounter for preprocedural laboratory examination (principal) | CPT/HCPCS: 86850; 86900; 86901; 86920 ==

== ENCOUNTER → 2019-06-05 | Outpatient (CLI) | payer MEDICARE ==
--- NOTE | 2019-06-05 15:39 | XR ---
EXAMINATION TYPE: XR hand complete LT DATE OF EXAM: 06/05/2019 COMPARISON: None HISTORY: Pain TECHNIQUE: Three-view left hand FINDINGS: There is mild diffuse soft tissue swelling over the hand. There is narrowing of the joint s pace of the distal and proximal interphalangeal joint spaces. No displaced fractures are evident. IMPRESSION: 1. Mild diffuse soft tissue swelling. 2. Degenerative joint changes of the proximal distal interphalangeal joint spaces. 3. No acute fractures evident. Follow-up exams can be performed 7-10 days from acute trauma for berenice nued pain.
--- NOTE | 2019-06-05 15:41 | XR ---
EXAMINATION TYPE: XR wrist complete LT DATE OF EXAM: 06/05/2019 COMPARISON: None HISTORY: Pain, swelling TECHNIQUE: 4 view left wrist FINDINGS: Scaphoid appears intact. Some mild soft tissue swelling is at the distal radius into the rodriguez nd. No displaced fractures are evident. Joint spaces appear preserved. Nuclear medicine bone scan or MRI could be performed for sufficient suspicion of scaphoid fracture IMPRESSION: 1. No acute osseous abnormalities. 2. Diffuse soft tissue swelling within the hand and distal wrist
== END | disposition home or self-care (01) ==
LOC: RADXRYALE 14:10
PROVIDERS: ATTEND Physician Assistant
DX: M79.89 Other specified soft tissue disorders (principal); M25.542 Pain in joints of left hand

== ENCOUNTER → 2020-07-19 | Outpatient (CLI) | payer MEDICARE ==
--- NOTE | 2020-07-19 15:56 | US ---
EXAMINATION TYPE: US carotid duplex BILAT DATE OF EXAM: 07/19/2020 COMPARISON: Ultrasound dated 09/22/2018 CLINICAL HISTORY: [id number] Occlusion and stenosis of pierre carotid arteri. EXAM MEASUREMENTS: RIGHT: Peak Systolic Velocity (PSV) cm/sec ----- Right CCA: 93.6 ----- Right ICA: 118 ----- Right ECA: 155 ICA/CCA ratio: 1.26 RIGHT: End Diastole cm/sec ----- Right CCA: 24.7 ----- Right ICA: 45.5 mildly elevated ----- Right ECA: 19.7 LEFT: Peak Systolic Velocity (PSV) cm/sec ----- Left CCA: 90.2 ----- Left ICA: 97.6 ----- Left ECA: 88.5 ICA/CCA ratio: 1.08 LEFT: End Diastole cm/sec ----- Left CCA: 21.3 ----- Left ICA: 16.4 ----- Left ECA: 16.4 VERTEBRALS (direction of flow): Right Vertebral: Antegrade Left Vertebral: Antegrade Rhythm: Normal Mild atherosclerotic plaque/calcification of the bilateral common carotid artery bifurcations. IMPRESSION: 1. Less than 50% stenosis of the bilateral internal carotid arteries. Mild atherosclerotic calcificat ion/plaque of the bilateral common carotid artery bifurcations. 2. Mildly elevated end-diastolic velocity of the right internal carotid artery of 45.5 cm/s. The ICA to CCA ratio on the right remains within normal limits at 1.26. Peak systolic velocity of the right i nternal carotid artery is 118 cm/s. This is also within normal limits. Criteria for Assigning % of Stenosis / Diameter reduction (Estimation based on the indirect measurements of the internal carotid artery velocities (ICA PSV). 1. Normal (no stenosis)=ICA PSV < 125 cm/s: ratio < 2.0: ICA EDV<40 cm/s. 2. Less than 50% stenosis=ICA PSV < 125 cm/s: ratio < 2.0: ICA EDV<40 cm/s. 3. 50 to 69% stenosis=ICA PSV of 125 to 230 cm/s: ration 2.0 ? 4.0: ICA EDV 40-100 cm/s. 4. Greater than 70% stenosis to near occlusion= ICA PSV > 230 cm/s: ratio > 4.0: ICA EDV > 100 cm/s. 5. Near occlusion= ICA PSV velocities may be low or undetectable: variable ratio and ICA EDV. 6. Total occlusion=unable to detect flow.
== END | disposition home or self-care (01) ==
LOC: RADUSWWP 10:57
PROVIDERS: ATTEND Family Medicine
DX: I65.23 Occlusion and stenosis of bilateral carotid arteries (principal)
CPT/HCPCS: 93880

== ENCOUNTER → 2024-01-03 | Outpatient (CLI) | payer MEDICARE ==
--- NOTE | 2024-01-03 11:16 | XR ---
EXAMINATION TYPE: XR lumbosacral spine min 4V DATE OF EXAM: 01/03/2024 CLINICAL HISTORY: TECHNIQUE: Frontal, lateral, and oblique images of the lumbar spine are obtained. COMPARISON: None FINDINGS: There are 5 lumbar type vertebral bodies identified. The lumbar spine shows satisfactory alignment without evidence of acute fracture or dislocation. Multilevel severe degenerative disc spac e narrowing with endplate sclerosis as well as ventral and dorsal spondylosis. Moderate facet joint a rthropathy. The oblique images appear within normal limits. The overlying soft tissue appears unrema rkable. IMPRESSION: No acute fracture or dislocation is seen in the lumbar spine. [facility], , 01/03/2024 11:14 AM
== END | disposition home or self-care (01) ==
LOC: RADXRYALE 09:37
PROVIDERS: ATTEND Physician Assistant Medical
DX: M51.16 Intervertebral disc disorders with radiculopathy, lumbar region (principal); M47.26 Other spondylosis with radiculopathy, lumbar region
CPT/HCPCS: 72110